=== PATIENT | female | born 1930 | race Caucasian/White ===

== ENCOUNTER 2020-03-16 13:55 | Inpatient (IN) | payer MEDICARE, BC ==
[~2020-03-16] VITALS: Ht 160 cm; Wt 53.8 kg
[2020-03-16] MEDS ORDERED: METHYL SALICYLATE/MENTHOL TOPICAL OINTMENT 57GM TUBE. TP PRN (15:30)
[2020-03-16] MEDS ORDERED: MAG HYDROX/AL HYDROX/SIMETH 30 ML ORAL.SUSP PO PRN (15:30)
[2020-03-16] MEDS ORDERED: MAGNESIUM HYDROXIDE 2,400 MG/30 ML ORAL.SUSP. PO PRN (15:30)
[2020-03-16 16:26] VITALS: BP 137/84
[2020-03-16] MEDS ORDERED: LEVO50TA5 PO (16:26)
[2020-03-16] MEDS ORDERED: SERT50TA PO (16:26)
[2020-03-16] MEDS ORDERED: MEMA10TA PO (16:26)
[2020-03-16] MEDS ORDERED: SERT25TA PO (16:26)
[2020-03-16] MEDS ORDERED: TRAZ-120 PO (16:26)
--- NOTE | 2020-03-16 16:39 | NUR ---
ADMISSION 89 YEAR OLD FEMALE DIRECT ADMIT WITH DEMENTIA AND ALZHEIMER'S IS FROM [facility] ARRIVED ON UNIT AT APPROX 1515 BY EMS. PATIENT IS CALM AND QUIET SITTING IN ROOM 131, ONLY TO BE REORIENTED EVERY SO OFTEN. DR Linda RAMIREZ NOTIFIED OF PATIENTS ARRIVAL. VITAL SIGNS ARE STABLE AND WILL CONTINUE TO MONITOR PATIENT.
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
[2020-03-16 19:26] LABS: BASO % 1 % (0-3); EOS # 0.1 x10^3/uL (0.0-0.7); EOS % 1 % (0-3); HEMATOCRIT 43.3 % (36.0-47.0); HEMOGLOBIN 14.2 g/dL (12.0-15.5); LYMPH # 1.6 x10^3/uL (1.0-4.8); LYMPH % 23 % (24-48); MEAN CORPUSCULAR HEMOGLOBIN 32 pg (25-35); MEAN CORPUSCULAR HGB CONC 33 g/dL (31-37); MEAN CORPUSCULAR VOLUME 98 fL (79-100); MONO # 0.6 x10^3/uL (0.0-1.1); MONO % 9 % (0-9); NEUT # 4.6 x10^3uL (1.8-7.7); NEUT % 66 % (31-73); PLATELET COUNT 200 x10^3/uL (140-400); RED BLOOD COUNT 4.42 x10^6/uL (3.50-5.40); WHITE BLOOD COUNT 6.9 x10^3/uL (4.0-11.0)
[2020-03-16 20:31] LABS: ALBUMIN 4.1 g/dL (3.4-5.0); ALBUMIN/GLOBULIN RATIO 1.2 (1.0-1.7); CALCIUM 9.9 mg/dL (8.5-10.1); GFR 52.3; MAGNESIUM 2.5 mg/dL (1.8-2.4); POTASSIUM 3.5 mmol/L (3.5-5.1); TOTAL BILIRUBIN 1.3 mg/dL (0.2-1.0); TOTAL PROTEIN 7.6 g/dL (6.4-8.2)
[2020-03-16 20:42] VITALS: BP 135/72
[2020-03-16] MEDS: MEMANTINE 10 MG TABLET. PO SCH (21:00)
--- NOTE | 2020-03-16 23:13 | PDOC ---
Exam Note: Brayan Note: Please also refer to the separate dictated note~for this date of service dictated separately. Discussed the patient with Nursing staff reviewed the chart.~Reviewed interim history and current functioning. Reviewed vital signs,~Labs/ Radiology~and current medications noted below. Continue current treatment with the changes noted in the dictated addendum note Assessment: Vital Signs/I&O: Vital Signs Date Time Temp Pulse Resp B/P (MAP) Pulse Ox O2 Delivery O2 Flow Rate FiO2 03/16/20 20:42 97.6 64 20 135/72 (93) 97 Room Air Labs: Laboratory Tests Test 03/16/20 19:11 White Blood Count 6.9 x10^3/uL (4.0-11.0) Red Blood Count 4.42 x10^6/uL (3.50-5.40) Hemoglobin 14.2 g/dL (12.0-15.5) Hematocrit 43.3 % (36.0-47.0) Mean Corpuscular Volume 98 fL (79-100) Mean Corpuscular Hemoglobin 32 pg (25-35) Mean Corpuscular Hemoglobin Concent 33 g/dL (31-37) Red Cell Distribution Width 18.0 % (11.5-14.5) H Platelet Count 200 x10^3/uL (140-400) Neutrophils (%) (Auto) 66 % (31-73) Lymphocytes (%) (Auto) 23 % (24-48) L Monocytes (%) (Auto) 9 % (0-9) Eosinophils (%) (Auto) 1 % (0-3) Basophils (%) (Auto) 1 % (0-3) Neutrophils # (Auto) 4.6 x10^3uL (1.8-7.7) Lymphocytes # (Auto) 1.6 x10^3/uL (1.0-4.8) Monocytes # (Auto) 0.6 x10^3/uL (0.0-1.1) Eosinophils # (Auto) 0.1 x10^3/uL (0.0-0.7) Basophils # (Auto) 0.0 x10^3/uL (0.0-0.2) Sodium Level 143 mmol/L (136-145) Potassium Level 3.5 mmol/L (3.5-5.1) Chloride Level 105 mmol/L (98-107) Carbon Dioxide Level 30 mmol/L (21-32) Anion Gap 8 (6-14) Blood Urea Nitrogen 17 mg/dL (7-20) Creatinine 1.0 mg/dL (0.6-1.0) Estimated GFR (Cockcroft-Gault) 52.3 BUN/Creatinine Ratio 17 (6-20) Glucose Level 80 mg/dL (70-99) Calcium Level 9.9 mg/dL (8.5-10.1) Magnesium Level 2.5 mg/dL (1.8-2.4) H Total Bilirubin 1.3 mg/dL (0.2-1.0) H Aspartate Amino Transferase (AST) 26 U/L (15-37) Alanine Aminotransferase (ALT) 59 U/L (14-59) Alkaline Phosphatase 91 U/L (46-116) Total Protein 7.6 g/dL (6.4-8.2) Albumin 4.1 g/dL (3.4-5.0) Albumin/Globulin Ratio 1.2 (1.0-1.7) Current Medications: I have reviewed the current psychotropics carefully including drug interactions. Risk benefit ratio favors no change other than as noted in my dictated progress note. SALLY MOREJON MD Mar 16, 2020 23:13
--- NOTE | 2020-03-17 03:17 | NUR ---
Nursing Note The patient started the shift very agitated and combative with all cares and interactions. The patient was very agitated during lab draws. The patient refused her one medication. The patient napped after HS cares and when she awoke she was much more pleasant albeit confused. The patient repeatedly attempted to exit bed without assistance. The patient is currently awake watching tv in her room.
[2020-03-17 05:45] VITALS: BP 151/81
[2020-03-17] MEDS: LEVOTHYROXINE 50 MCG TABLET PO SCH (05:46)
[2020-03-17] MEDS: SERTRALINE 50 MG TABLET. PO SCH (08:19)
[2020-03-17] MEDS: SERTRALINE 25 MG TABLET. PO SCH (08:19)
[2020-03-17] MEDS: MEMANTINE 10 MG TABLET. PO SCH ×2 (08:19→19:53)
[2020-03-17] MEDS: traZODone 50 MG TABLET. PO SCH (08:19)
[2020-03-17 11:00] VITALS: BP_SYST 118; BP_SYST 175; BP_DIAS 74; BP_DIAS 91
--- NOTE | 2020-03-17 11:06 | HP ---
ADMIT DATE: 03/17/2020 ATTENDING PHYSICIAN: Dr. Ramirez. REASON FOR CONSULTATION: We are asked to see this patient for medical evaluation and COVID-19 swabbing. HISTORY OF PRESENT ILLNESS: The patient is an 89-year-old female from a memory care unit at [facility]. She is profoundly demented. She is refusing meds at time, thinking other men as her , wanders into other rooms, gets agitated and has been aggressive towards staff. She has been on the Senior Behavioral Unit in the past for adjustment of medication. Unfortunately, she cannot give much history, much of the history is obtained from the old chart. PAST MEDICAL HISTORY: Significant for the dementia, hypothyroidism, hyperlipidemia, and remote history of migraine headaches. ALLERGIES: She has allergies to donepezil, exact reaction is unclear. CURRENT MEDICINES: Include Synthroid 50 mcg daily, Namenda, Zoloft 75 mg daily and trazodone 50 mg at bedtime. SOCIAL HISTORY: She is a nonsmoker and nondrinker. FAMILY HISTORY: Unobtainable. REVIEW OF SYSTEMS: Unfortunately is unobtainable due to the patient's dementia. PHYSICAL EXAMINATION: GENERAL: When I saw her, this is an elderly female who was poorly responsive. INITIAL VITAL SIGNS: Showed a blood pressure of 151/81 mmHg, pulse is 51 and regular, temperature 97.5 degrees Fahrenheit, and oxygen saturation 97% on room air. HEENT: Head is without trauma. Pupils are reactive. Sclerae nonicteric. Oropharynx is clear. NECK: Supple, no bruits identified. LUNGS: Shallow respirations. CARDIOVASCULAR: Showed regular heart tones. No gallops. Peripheral pulses are palpable and full. ABDOMEN: Soft, nontender, no organomegaly. Bowel sounds are hypoactive. EXTREMITIES: Showed no cyanosis or edema. NEUROLOGIC: The patient is profoundly demented, not very cooperative and has no insight into what is going on. SKIN: Otherwise warm and dry. PERTINENT LABORATORY STUDIES: The hemoglobin is maintained at 14.2 grams per deciliter with a white count of 6900. Electrolytes are within normal range. Total bilirubin slightly elevated at 1.3. Transaminases were normal. Coronavirus swab was pending. ASSESSMENT: 1. This 89-year-old female has profound dementia with behavioral issues. 2. Noncompliance and aggressive behavior. 3. Hypertension. 4. Hyperlipidemia. 5. History of migraine headaches. PLAN: 1. Admit to the medical floor. 2. Await COVID-19 coronavirus swab. 3. She will go to the Behavioral Unit when she is negative. 4. Home meds have been continued. At this time, she is a full code. KENRICK RAMIREZ MD DR: DEJUAN/jacqueline JOB#: [id number] / [id number]
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
--- NOTE | 2020-03-17 12:53 | EKG ---
[address] [address] Test Date: 2020-03-17 Test Time: 09:18:35 Pat Name: PB COOK Department: Room: 131 A Gender: F Sprinkler Repair Technician: : [id number] Requested By: KENRICK RAMIREZ Order Number: [id number] Reading MD: Kel Alvarado Measurements Intervals [place] Rate: 74 P: -47 PA: 100 QRS: -27 QRSD: 98 T: 24 QT: 420 QTc: 472 Interpretive Statements SINUS RHYTHM LEFTWARD AXIS LOW LIMB LEAD VOLTAGE T ABNORMALITY IN ANTEROSEPTAL LEADS ABNORMAL ECG RI6.01 No previous ECG available for comparison Electronically Signed On 04-04-2020 17:40:03 STRATEGIC SOURCING MANAGER by Kel Alvarado
[2020-03-17 14:49] LABS: THYROID STIM HORMONE (TSH) 92.27 uIU/mL (0.358-3.740)
[2020-03-17 15:00] VITALS: BP 148/79
--- NOTE | 2020-03-17 17:22 | NUR ---
patient Hamilton spoke with pt over telephone and called nurses station asking why patient was so drowsy. Informed about pt behaviors earlier in the day and being aggressive towards staff, both verbally and physically and the doctor ordered a dose of a medication that caused drowsiness. misunderstood the medication and was upset stating we sedated patient. Informed that when pt was aggressive, we have tried redirection with walking down hallway and attempting to use the bathroom but patient was still agitated after, then medication was tried. Informed pt about the use of the medication and that the patient was drowsy but was arousable when awoken from sleep. Pt is currently eating hamburger in bed independently and has gotten up to [facility] x2 assist. pt is cooperative at this time and informed.
[2020-03-17 18:25] VITALS: BP 106/65
[2020-03-17] MEDS: ACETAMINOPHEN 325 MG TABLET PO PRN (19:53)
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
--- NOTE | 2020-03-17 22:05 | PDOC ---
Exam Note: Brayan Note: Please also refer to the separate dictated note~for this date of service dictated separately.~Patient seen individually. Discussed the patient with Nursing staff reviewed the chart.~Reviewed interim history and current functioning. Reviewed vital signs,~Labs/ Radiology~and current medications noted below. Continue current treatment with the changes noted in the dictated addendum note Assessment: Vital Signs/I&O: Vital Signs Date Time Temp Pulse Resp B/P (MAP) Pulse Ox O2 Delivery O2 Flow Rate FiO2 03/17/20 18:25 97.3 73 20 106/65 (79) 95 Room Air I & O 03/16/20 03/16/20 03/17/20 14:59 22:59 06:59 Intake Total 0 ml 145 ml Balance 0 ml 145 ml Labs: Laboratory Tests Test 03/17/20 05:58 D-Dimer (Yancy) 1.09 mg/L (0.00-0.50) H Current Medications: Meds: Current Medications Medications (Trade) Dose Ordered Sig/Pedro Route PRN Reason Start Time Stop Time Status Last Admin Dose Admin Levothyroxine Sodium (Synthroid) 50 mcg DAILY06 PO 03/17/20 06:00 03/17/20 05:46 Sertraline HCl (Zoloft) 25 mg DAILY PO 03/17/20 09:00 03/17/20 08:19 Sertraline HCl (Zoloft) 50 mg DAILY PO 03/17/20 09:00 03/17/20 08:19 Trazodone HCl (Desyrel) 50 mg DAILY PO 03/17/20 09:00 03/17/20 08:19 Olanzapine (ZyPREXA ZYDIS) 5 mg PRN BID PRN PO ANXIETY / AGITATION 03/17/20 12:00 03/17/20 19:53 I have reviewed the current psychotropics carefully including drug interactions. Risk benefit ratio favors no change other than as noted in my dictated progress note. Diagnosis: Problems: (1) Major neurocognitive disorder (2) Dementia in Alzheimer's disease with delusions (3) Dementia in Alzheimer's disease with depression (4) Dementia of the Alzheimer's type with early onset with behavioral disturbance (5) Dementia, vascular, with delusions (6) Dementia, vascular, with depression (7) Anxiety disorder, unspecified (8) Impulse disorder, unspecified SALLY MOREJON MD Mar 17, 2020:05
[2020-03-17 23:07] LABS: HEMOGLOBIN A1C 5.4 % (4.8-5.6)
[2020-03-18] MEDS: LEVOTHYROXINE 50 MCG TABLET PO SCH (05:58)
[2020-03-18 06:27] VITALS: BP 147/93
[2020-03-18] MEDS: SERTRALINE 25 MG TABLET. PO SCH (12:19)
[2020-03-18] MEDS: traZODone 50 MG TABLET. PO SCH (12:19)
[2020-03-18] MEDS: SERTRALINE 50 MG TABLET. PO SCH (12:19)
[2020-03-18] MEDS: MEMANTINE 10 MG TABLET. PO SCH ×3 (12:19→21:00)
--- NOTE | 2020-03-18 12:32 | PN ---
DATE: 03/18/2020 ATTENDING PHYSICIAN: Dr. Ramirez. SUBJECTIVE: The patient is fast asleep. She is snoring. She had to be given Ativan because she was very agitated yesterday, trying to get out of bed and being belligerent. OBJECTIVE FINDINGS: VITAL SIGNS: Blood pressure today is 147/93 mmHg, temperature 97.5 degrees Fahrenheit, pulse 76 and regular and oxygen saturation 94% on room air. HEENT: Head is without trauma. Pupils are reactive. Sclerae are nonicteric. Oropharynx clear. NECK: Supple. No stridor. LUNGS: Good breath sounds. CARDIOVASCULAR: Showed regular heart tones. ABDOMEN: Soft without any guarding or rebound tenderness. EXTREMITIES: Without edema. NEUROLOGIC: The patient is fast asleep. LABORATORY DATA: Reviewed. Her hemoglobin is 14.2 g, white count 6900. Electrolytes are within normal range. Creatinine is 1.0 mg/dL. Serology shows a nonreactive Treponema pallidum. The coronavirus swab is still pending. ASSESSMENT: This 89-year-old female has; 1. Profound dementia with agitation. 2. Essential hypertension. 3. Hyperlipidemia. 4. Noncompliance of meds and behavioral issues. PLAN: 1. Meds as ordered. 2. Await COVID-19 coronavirus swab. 3. She will go to the Behavioral Unit when the swab is available and negative. KENRICK RAMIREZ MD DR: DEJUAN/jacqueline JOB#: [id number] / [id number]
[2020-03-18] MEDS: ACETAMINOPHEN 325 MG TABLET PO PRN (12:46)
[2020-03-18] MEDS ORDERED: traZODone 50 MG TABLET. PO PRN (17:00)
[2020-03-18 17:39] VITALS: BP 154/86
--- NOTE | 2020-03-18 17:47 | NUR ---
Pt has been very tired today, sleeping for most of the day. When staff was in room to reposition/change brief, she would wake up and have auditory/visual hallucinations, would only acknowledge staff if with physical stimuli. She would not answer staff when asked who she is talking to or what about. She ate lunch and dinner with assist from staff. She was physically aggressive at one point this afternoon when staff was attempting to wipe her eyes as they looked crusty and she was not opening them. She yelled at staff saying 'stop this, stop it now' and swung/flailed arms, spitting at staff. Patient , Hamilton has called nursing station several times today, upwards of ten. At one point this am he was pleasant but every call after he has been verbally aggressive, saying things like, 'why is my so tired today, she can't even talk to me?' 'why are you trying to kill my '. I spoke to Hamilton several times informing him that she has not gotten any further PRN medications today, she had a very rough day yesterday with staff and did not sleep well last night. He was still unaccepting of this and demanded to speak to nursing [employer] supervisor. Nursing [employer] supervisor contacted. Updated Dr Boyce re: pt drowsiness today. New orders placed.
--- NOTE | 2020-03-18 21:00 | NUR ---
Patient is in bed on assumption of care. She is sleeping but arouses to name being called. Refuses to open her eyes or acknowledge this nurse. Reaching up and picking at the air. HS meds held due to drowsiness. Patient appears to be sleeping comfortably at present time. Will continue to monitor.
--- NOTE | 2020-03-18 22:04 | PDOC ---
Exam Note: Brayan Note: Please also refer to the separate dictated note~for this date of service dictated separately.~Patient seen individually. Discussed the patient with Nursing staff reviewed the chart.~Reviewed interim history and current functioning. Reviewed vital signs,~Labs/ Radiology~and current medications noted below. Continue current treatment with the changes noted in the dictated addendum note Assessment: Vital Signs/I&O: Vital Signs Date Time Temp Pulse Resp B/P (MAP) Pulse Ox O2 Delivery O2 Flow Rate FiO2 03/18/20 17:39 97.3 78 15 154/86 (108) 94 Room Air I & O 03/17/20 03/17/20 03/18/20 15:00 23:00 07:00 Intake Total 120 ml 410 ml Balance 120 ml 410 ml Current Medications: Meds: Current Medications Medications (Trade) Dose Ordered Sig/Pedro Route PRN Reason Start Time Stop Time Status Last Admin Dose Admin Olanzapine (ZyPREXA ZYDIS) 2.5 mg PRN TID PRN PO ANXIETY / PSYCHOSIS 03/18/20 17:00 03/18/20 21:26 DC 03/18/20 19:31 I have reviewed the current psychotropics carefully including drug interactions. Risk benefit ratio favors no change other than as noted in my dictated progress note. Diagnosis: Problems: (1) Anxiety disorder, unspecified (2) Dementia, vascular, with depression (3) Dementia, vascular, with delusions (4) Impulse disorder, unspecified (5) Dementia in Alzheimer's disease with depression (6) Dementia in Alzheimer's disease with delusions (7) Dementia of the Alzheimer's type with early onset with behavioral disturbance (8) Major neurocognitive disorder SALLY MOREJON MD Mar 18, 2020 22:04
[2020-03-19 04:50] LABS: BACTERIA,URINE 0 /HPF (0-FEW); BILIRUBIN,URINE NEG (NEG); CLARITY,URINE CLEAR; COLOR,URINE YELLOW; GLUCOSE,URINE NEG (NEG); NITRITE,URINE NEG (NEG); SQUAMOUS EPITHELIAL CELL,UR OCC /LPF; UROBILINOGEN,URINE 0.2 mg/dL (0.2 mg/dL); WBC,URINE RARE /HPF (0-4)
[2020-03-19] MEDS: LEVOTHYROXINE 50 MCG TABLET PO SCH ×2 (05:05→10:47)
[2020-03-19 05:25] VITALS: BP 131/83
--- NOTE | 2020-03-19 05:41 | NUR ---
Patient assisted out of bed and onto bedside commode with an assist of 2. She would not open her eyes and had her feet crossed, but did follow direction and staff was able to get her transferred to the commode successfully. While on the commode, this nurse offered the patient a drink of water. Placed the straw in her mouth, but patient could not figure out how to suck water from the straw. Small sips given. Bed bath was performed while patient was sitting on commode. She was very cooperative. Voiced irritation at how rough the washcloth was, but otherwise no resistance. Patient had soiled her brief with a large amount of urine while in bed, and did not urinate in the hat that was placed in the commode. Patient assisted back to bed with staff assist of 2. Steri-strips that had been placed by patients facility on the skin tear on left forearm were crusty and had a foul odor. Area moistened with normal saline, steri-strips gently removed, area washed and dried, and redressed with a foam dressing. Patient tolerated dressing change well. [facility] from [facility] arrived to assist with obtaining urine specimen via straight cath. Patient very tense, but tolerated procedure well. Patient currently sleeping, will continue to monitor.
[2020-03-19] MEDS: MEMANTINE 10 MG TABLET. PO SCH (10:46)
[2020-03-19] MEDS: SERTRALINE 50 MG TABLET. PO SCH (10:46)
[2020-03-19] MEDS: SERTRALINE 25 MG TABLET. PO SCH (10:46)
[2020-03-19 11:00] VITALS: BP 150/71
--- NOTE | 2020-03-19 11:18 | NUR ---
Report called to Gisell SOW in [facility], questions answered. Pt left unit at 1118 with belongings including clothing and walker and paperwork.
--- NOTE | 2020-03-19 11:28 | DS ---
DATE OF DISCHARGE: 03/19/2020 ATTENDING PHYSICIAN: Dr. Ramirez. FINAL DISCHARGE DIAGNOSES: 1. An 89-year-old female with profound dementia. 2. Associated behavioral issues, noncompliance and aggressive behavior. 3. Essential hypertension. 4. Hyperlipidemia. 5. History of migraine headaches. HISTORY OF PRESENT ILLNESS: This is an 89-year-old female from a local memory [facility] facility sent to admission at the [facility]. She is here for COVID-19 evaluation. PHYSICAL EXAMINATION: Please see the dictated note. PERTINENT LABORATORY AND X-RAY STUDIES: COVID-19 serology was nondetected. Treponema pallidum serology was negative. Hemoglobin maintained at 14.2 g with a white count of 6900. Electrolytes were within normal range; normal sodium, potassium, creatinine 1 mg percent. Transaminases within normal range. COURSE IN THE HOSPITAL: The patient was admitted. She was very noncompliant. She was not aware of person and place. Diet was advanced. She was medically stable. On the third hospital day after a negative COVID-19 coronavirus swab, she was discharged to go to the [facility]. Her discharge meds are unchanged that will continue her scheduled Synthroid 50 mcg daily, Namenda, Zoloft and trazodone dose unchanged. She is a full code per advance directive. She was discharged then from our hospital to the [facility] in stable condition with explicit instructions and followup care. ADDENDUM: The patient's TSH was 92. Clinically, she is euthyroid. Biochemically, she is hypothyroid. She has been on 50 mcg of Synthroid daily, dose has been adjusted and increased to 100 mcg p.o. daily. I suggested a followup TSH in 1 month time. KENRICK RAMIREZ MD DR: DEJUAN/jacqueline JOB#: [id number] / [id number] SALLY Lemus MD
--- NOTE | 2020-03-20 06:58 | PDOC ---
Exam Note: Brayan Note: This note is a late entry for 03/18/2020 covers elements not covered in my initial note. Subjective: The patient was seen face to face in the evening of 03/18/2020 with Sandra SOW. Discussed with nursing staff, reviewed the chart. The patient has been somewhat tired, withdrawn. Her is called 10 or 12 times concerned about that she is not eating enough. Staff is trying to assist her with this. She has been tired, grabbing at things, hallucinating per nursing report. Review of Systems: No CV, , pulmonary, eye, ENT system symptoms on review. Reliability poor. Mental Status Exam: Oriented to herself. Insight and judgment, recent and remote memory, attention and concentration, fund of knowledge is poor consistent with her diagnoses. Laboratory Data: Reviewed. Impression: Major neurocognitive disorder, Alzheimer, vascular with delusion, depression, behavioral disturbance. Anxiety disorder unspecified. Impulse control disorder unspecified. Plan: We will go ahead and change the Zyprexa Zydis 5 mg b.i.d. p.r.n. to 1.25 mg t.i.d. p.r..n psychosis and agitation and reduce the trazodone 50 mg h.s. scheduled down to 25 mg h.s. p.r.n. insomnia to help reduce the sedation. Co ntinue Zoloft at current dosage and Namenda. Adjust further as clinically indicated. Reportedly the patients daughter had called us well and Melodie SOW did share patients progress with the daughter and the fact that we are adjusting the psychotropics and sometimes that can cause somewhat greater sedation initially till the body adapts to it. I did offer to call the but nursing staff indicated he was very hard of hearing and felt it was best for the nursing staff to communicate with the daughter who then could communicate with the patients . We will have social service staff involved on Friday with his communication. Assessment: Vital Signs/I&O: Vital Signs Date Time Temp Pulse Resp B/P (MAP) Pulse Ox O2 Delivery O2 Flow Rate FiO2 03/19/20 11:00 97.9 64 20 150/71 (97) 97 Room Air I & O 03/19/20 03/19/20 03/20/20 15:00 23:00 07:00 Intake Total 0 ml Balance 0 ml Current Medications: I have reviewed the current psychotropics carefully including drug interactions. Risk benefit ratio favors no change other than as noted in my dictated progress note. 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
== END 2020-03-19 11:18 | DRG 57 ==
LOC: LND 15:06
PROVIDERS: ADMIT Hospitalist; ATTEND Hospitalist
DX: G30.9 Alzheimer's disease, unspecified (principal); F01.51 Vascular dementia, unspecified severity, with behavioral disturbance; F02.81 Dementia in other diseases classified elsewhere, unspecified severity, with behavioral disturbance; E03.9 Hypothyroidism, unspecified; E78.5 Hyperlipidemia, unspecified; F32.9 Major depressive disorder, single episode, unspecified; G43.909 Migraine, unspecified, not intractable, without status migrainosus; F41.9 Anxiety disorder, unspecified; F63.9 Impulse disorder, unspecified; I10 Essential (primary) hypertension; Z91.14 Patient's other noncompliance with medication regimen; Z91.19 Patient's noncompliance with other medical treatment and regimen; Z20.828 Contact with and (suspected) exposure to other viral communicable diseases
CPT/HCPCS: 36415; 80053; 80061; 81001; 82306; 82607; 83036; 83540; 83550; 83735; 84436; 84443; 84480; 85025; 85379; 86592; 93005; U0003

== ENCOUNTER 2020-03-19 10:35 | Inpatient (IN) | payer MEDICARE, BC ==
[~2020-03-19] VITALS: Ht 160 cm; Wt 53.2 kg
[~2020-03-19 10:35] MED LIST: LEVO50TA5 PO; MEMA10TA PO; SERT25TA PO; SERT50TA PO; TRAZ-120 PO
[2020-03-19 11:40] VITALS: BP 158/79
[2020-03-19] MEDS ORDERED: METHYL SALICYLATE/MENTHOL TOPICAL OINTMENT 57GM TUBE. TP PRN (12:15)
[2020-03-19] MEDS ORDERED: MAG HYDROX/AL HYDROX/SIMETH 30 ML ORAL.SUSP PO PRN (12:15)
[2020-03-19 17:29] LABS: BASO % 0 % (0-3); EOS # 0.1 x10^3/uL (0.0-0.7); EOS % 1 % (0-3); HEMATOCRIT 46.8 % (36.0-47.0); HEMOGLOBIN 15.4 g/dL (12.0-15.5); LYMPH # 0.7 x10^3/uL (1.0-4.8); LYMPH % 13 % (24-48); MEAN CORPUSCULAR HEMOGLOBIN 32 pg (25-35); MEAN CORPUSCULAR HGB CONC 33 g/dL (31-37); MEAN CORPUSCULAR VOLUME 98 fL (79-100); MONO # 0.5 x10^3/uL (0.0-1.1); MONO % 8 % (0-9); NEUT # 4.6 x10^3uL (1.8-7.7); NEUT % 78 % (31-73); PLATELET COUNT 197 x10^3/uL (140-400); RED CELL DISTRIBUTION WIDTH 17.5 % (11.5-14.5); WHITE BLOOD COUNT 5.9 x10^3/uL (4.0-11.0)
[2020-03-19 17:32] LABS: CALCIUM 9.4 mg/dL (8.5-10.1); CREATININE 1.1 mg/dL (0.6-1.0); GFR 46.9; POTASSIUM 3.5 mmol/L (3.5-5.1)
[2020-03-19 17:38] LABS: ALBUMIN 3.8 g/dL (3.4-5.0); ALBUMIN/GLOBULIN RATIO 1.1 (1.0-1.7); TOTAL BILIRUBIN 1.7 mg/dL (0.2-1.0); TOTAL PROTEIN 7.3 g/dL (6.4-8.2)
[2020-03-19] MEDS: MEMANTINE 10 MG TABLET. PO SCH (20:12)
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
[2020-03-19] MEDS: ACETAMINOPHEN 325 MG TABLET PO PRN (22:52)
[2020-03-20] MEDS: LEVOTHYROXINE 100 MCG TABLET PO SCH ×2 (05:02→12:51)
[2020-03-20 05:50] VITALS: BP 165/83
[2020-03-20] MEDS ORDERED: traZODone 50 MG TABLET. PO SCH (09:00)
[2020-03-20] MEDS: MEMANTINE 10 MG TABLET. PO SCH ×2 (12:51→19:53)
[2020-03-20] MEDS: SERTRALINE 50 MG TABLET. PO SCH (12:52)
[2020-03-20] MEDS: SERTRALINE 25 MG TABLET. PO SCH (12:52)
[2020-03-20 15:42] VITALS: BP 99/60
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
[2020-03-20 19:37] VITALS: BP 101/61
[2020-03-20] MEDS: ZIPRASIDONE 20 MG CAPSULE. PO SCH (19:53)
--- NOTE | 2020-03-20 22:03 | PDOC ---
Exam Note: Brayan Note: Please also refer to the separate dictated note~for this date of service dictated separately.~Patient seen individually. Discussed the patient with Nursing staff reviewed the chart.~Reviewed interim history and current functioning. Reviewed vital signs,~Labs/ Radiology~and current medications noted below. Continue current treatment with the changes noted in the dictated addendum note Assessment: Vital Signs/I&O: Vital Signs Date Time Temp Pulse Resp B/P (MAP) Pulse Ox O2 Delivery O2 Flow Rate FiO2 03/20/20 19:37 60 101/61 (74) 03/20/20 15:42 98.4 18 92 I & O 03/19/20 03/19/20 03/20/20 14:59 22:59 06:59 Intake Total 200 ml Balance 200 ml Current Medications: Meds: Current Medications Medications (Trade) Dose Ordered Sig/Pedro Route PRN Reason Start Time Stop Time Status Last Admin Dose Admin Levothyroxine Sodium (Synthroid) 100 mcg DAILY06 PO 03/20/20 06:00 03/20/20 12:51 Sertraline HCl (Zoloft) 25 mg DAILY PO 03/20/20 09:00 03/20/20 12:52 Sertraline HCl (Zoloft) 50 mg DAILY PO 03/20/20 09:00 03/20/20 12:52 Olanzapine (ZyPREXA ZYDIS) 1.25 mg PRN Q2HR PRN PO PSYCHOSIS 03/19/20 22:45 03/19/20 22:52 Ziprasidone (Geodon) 20 mg HS PO 03/20/20 21:00 03/20/20 19:53 I have reviewed the current psychotropics carefully including drug interactions. Risk benefit ratio favors no change other than as noted in my dictated progress note. Diagnosis: Problems: (1) Anxiety disorder, unspecified (2) Dementia, vascular, with delusions (3) Dementia in Alzheimer's disease with depression (4) Dementia in Alzheimer's disease with delusions (5) Major neurocognitive disorder (6) Dementia, vascular, with depression (7) Impulse disorder, unspecified (8) Dementia of the Alzheimer's type with early onset with behavioral disturbance SALLY MOREJON MD Mar 20, 2020 22:03
[2020-03-21] MEDS: LEVOTHYROXINE 100 MCG TABLET PO SCH (05:02)
[2020-03-21 05:32] VITALS: BP 145/73
[2020-03-21] MEDS: MEMANTINE 10 MG TABLET. PO SCH ×2 (10:48→19:44)
[2020-03-21] MEDS: SERTRALINE 50 MG TABLET. PO SCH (10:48)
[2020-03-21] MEDS: SERTRALINE 25 MG TABLET. PO SCH (10:48)
[2020-03-21 16:06] VITALS: BP 130/77
[2020-03-21] MEDS: ZIPRASIDONE 20 MG CAPSULE. PO SCH (19:44)
[2020-03-21] MEDS: ACETAMINOPHEN 325 MG TABLET PO PRN (20:58)
--- NOTE | 2020-03-21 21:54 | PDOC ---
Exam Note: Brayan Note: Please also refer to the separate dictated note~for this date of service dictated separately.~Patient seen individually. Discussed the patient with Nursing staff reviewed the chart.~Reviewed interim history and current functioning. Reviewed vital signs,~Labs/ Radiology~and current medications noted below. Continue current treatment with the changes noted in the dictated addendum note Assessment: Vital Signs/I&O: Vital Signs Date Time Temp Pulse Resp B/P (MAP) Pulse Ox O2 Delivery O2 Flow Rate FiO2 03/21/20 16:06 98.3 66 18 130/77 (94) 95 I & O 03/20/20 03/20/20 03/21/20 15:00 23:00 07:00 Intake Total 0 ml 100 ml Balance 0 ml 100 ml Current Medications: I have reviewed the current psychotropics carefully including drug interactions. Risk benefit ratio favors no change other than as noted in my dictated progress note. Diagnosis: Problems: (1) Anxiety disorder, unspecified (2) Dementia, vascular, with depression (3) Dementia, vascular, with delusions (4) Impulse disorder, unspecified (5) Dementia in Alzheimer's disease with depression (6) Dementia in Alzheimer's disease with delusions (7) Dementia of the Alzheimer's type with early onset with behavioral disturbance (8) Major neurocognitive disorder SALLY MOREJON MD Mar 21, 2020 21:54
[2020-03-22] MEDS: LEVOTHYROXINE 100 MCG TABLET PO SCH (05:36)
[2020-03-22 05:52] VITALS: BP 120/74
--- NOTE | 2020-03-22 07:03 | PDOC ---
Exam Note: Brayan Note: This note is a late entry for 03/20/2020 covers elements not covered in my initial note. Subjective: The patient was seen face to face in the morning of 03/20/2020 for treatment meeting with Noelle Valdovinos Nicky (social service staff), Louise, Activity Therapy, and Franci SOW. Discussed with nursing staff, reviewed the chart. The patient was also seen face to face in the evening of 03/20/2020. The patient slept 5 hours previous night. Overall the patient has been less sedated today. Appetite is 50%. She is somewhat restless, difficult to redirect at times. She was placed on a mat on the floor for her own safety since she was a fall risk. At the treatment team meeting we reviewed her history at length. She had been moved to the Memory Care Unit about 2 weeks previously due to worsening cognitive deficits. Labs done last night were unremarkable for dehydration. When I saw the patient in the evening per nursing report, she attempted to walk with a walker, remains delusional, confused per Franci SOW. She was restless, believed people were trying to kill her. Review of Systems: No CV, , pulmonary, eye, ENT system symptoms on review. Mental Status Exam: Oriented to herself. Insight and judgment, recent and remote memory, attention and concentration, fund of knowledge is poor consistent with her diagnoses. Laboratory Data: Reviewed. Impression: Major neurocognitive disorder, Alzheimer, vascular with delusion, depression, behavioral disturbance. Anxiety disorder unspecified. Impulse control disorder unspecified. Plan: No change from initial note. The patient remains psychotic. We will start her non-sedating atypical antipsychotic with Geodon 20 mg h.s. Check EKG in 3 days. Adjust further as clinically indicated. Assessment: Vital Signs/I&O: Vital Signs Date Time Temp Pulse Resp B/P (MAP) Pulse Ox O2 Delivery O2 Flow Rate FiO2 03/22/20 05:52 97.9 67 18 120/74 (89) 95 Room Air I & O 03/21/20 03/21/20 03/22/20 15:00 23:00 07:00 Intake Total 240 ml 600 ml Balance 240 ml 600 ml Current Medications: I have reviewed the current psychotropics carefully including drug interactions. Risk benefit ratio favors no change other than as noted in my dictated progress note. Diagnosis: Problems: (1) Anxiety disorder, unspecified (2) Dementia, vascular, with depression (3) Dementia, vascular, with delusions (4) Impulse disorder, unspecified (5) Dementia in Alzheimer's disease with depression (6) Dementia in Alzheimer's disease with delusions (7) Dementia of the Alzheimer's type with early onset with behavioral disturbance (8) Major neurocognitive disorder SALLY MOREJON MD Mar 22, 2020 07:03
[2020-03-22] MEDS: MEMANTINE 10 MG TABLET. PO SCH ×2 (08:55→20:07)
[2020-03-22] MEDS: SERTRALINE 25 MG TABLET. PO SCH (08:55)
[2020-03-22] MEDS: SERTRALINE 50 MG TABLET. PO SCH (08:55)
[2020-03-22 15:43] VITALS: BP 137/77
[2020-03-22] MEDS: ZIPRASIDONE 20 MG CAPSULE. PO SCH (20:06)
--- NOTE | 2020-03-22 21:59 | PDOC ---
Exam Note: Brayan Note: Please also refer to the separate dictated note~for this date of service dictated separately.~Patient seen individually. Discussed the patient with Nursing staff reviewed the chart.~Reviewed interim history and current functioning. Reviewed vital signs,~Labs/ Radiology~and current medications noted below. Continue current treatment with the changes noted in the dictated addendum note Assessment: Vital Signs/I&O: Vital Signs Date Time Temp Pulse Resp B/P (MAP) Pulse Ox O2 Delivery O2 Flow Rate FiO2 03/22/20 15:43 97.9 90 16 137/77 (97) 100 Room Air I & O 03/21/20 03/21/20 03/22/20 14:59 22:59 06:59 Intake Total 240 ml 600 ml Balance 240 ml 600 ml Current Medications: I have reviewed the current psychotropics carefully including drug interactions. Risk benefit ratio favors no change other than as noted in my dictated progress note. Diagnosis: Problems: (1) Anxiety disorder, unspecified (2) Dementia, vascular, with depression (3) Dementia, vascular, with delusions (4) Impulse disorder, unspecified (5) Dementia in Alzheimer's disease with depression (6) Dementia in Alzheimer's disease with delusions (7) Major neurocognitive disorder (8) Dementia of the Alzheimer's type with early onset with behavioral disturbance SALLY MOREJON MD Mar 22, 2020 21:59
[2020-03-23] MEDS: LEVOTHYROXINE 100 MCG TABLET PO SCH (04:59)
[2020-03-23 05:22] VITALS: BP 133/73
--- NOTE | 2020-03-23 07:36 | PDOC ---
Exam Note: Brayan Note: This note is a late entry for 03/21/2020 covers elements not covered in my initial note. Subjective: The patient was seen face to face in the evening of 03/21/2020 with Tanja SOW. Discussed with nursing staff, reviewed the chart. The patient slept 8-1/2 hours previous night. She ate no breakfast. She is compliant with medications, 800% lunch. Review of Systems: No CV, , pulmonary, eye, ENT system symptoms on review. Reliability poor. Mental Status Exam: Oriented to herself. Insight and judgment, recent and remote memory, attention and concentration, fund of knowledge is poor consistent with her diagnoses. Laboratory Data: Reviewed. Impression: Major neurocognitive disorder, Alzheimer, vascular with delusion, depression, behavioral disturbance. Anxiety disorder unspecified. Impulse control disorder unspecified. Plan: No change from initial note. Assessment: Vital Signs/I&O: Vital Signs Date Time Temp Pulse Resp B/P (MAP) Pulse Ox O2 Delivery O2 Flow Rate FiO2 03/23/20 05:22 98.0 57 16 133/73 (93) 94 Room Air I & O 03/22/20 03/22/20 03/23/20 15:00 23:00 07:00 Intake Total 200 ml 200 ml 120 ml Balance 200 ml 200 ml 120 ml Current Medications: I have reviewed the current psychotropics carefully including drug interactions. Risk benefit ratio favors no change other than as noted in my dictated progress note. Diagnosis: Problems: (1) Anxiety disorder, unspecified (2) Dementia, vascular, with depression (3) Dementia, vascular, with delusions (4) Impulse disorder, unspecified (5) Dementia in Alzheimer's disease with depression (6) Dementia in Alzheimer's disease with delusions (7) Dementia of the Alzheimer's type with early onset with behavioral disturbance (8) Major neurocognitive disorder SALLY MOREJON MD Mar 23, 2020 07:36
--- NOTE | 2020-03-23 07:54 | PDOC ---
Exam Note: Brayan Note: This note is a late entry for 03/22/2020 covers elements not covered in my initial note. Subjective: The patient was reviewed on telehealth rounds in the evening of 03/22/2020 with Yolanda SOW. Discussed with nursing staff, reviewed the chart. The patient slept 7-1/2 hours previous night. She has been confused, somewhat more verbal in the evening. Appetite is better. Review of Systems: No CV, , pulmonary, eye system symptoms on review. Mental Status Exam: Oriented to herself. Insight and judgment, recent and remote memory, attention and concentration, fund of knowledge is poor consistent with her diagnoses. Laboratory Data: Reviewed. Impression: Major neurocognitive disorder, Alzheimer, vascular with delusion, depression, behavioral disturbance. Anxiety disorder unspecified. Impulse control disorder unspecified. Plan: No change from initial note. Assessment: Vital Signs/I&O: Vital Signs Date Time Temp Pulse Resp B/P (MAP) Pulse Ox O2 Delivery O2 Flow Rate FiO2 03/23/20 05:22 98.0 57 16 133/73 (93) 94 Room Air I & O 03/22/20 03/22/20 03/23/20 15:00 23:00 07:00 Intake Total 200 ml 200 ml 120 ml Balance 200 ml 200 ml 120 ml Current Medications: I have reviewed the current psychotropics carefully including drug interactions. Risk benefit ratio favors no change other than as noted in my dictated progress note. Diagnosis: Problems: (1) Anxiety disorder, unspecified (2) Dementia, vascular, with depression (3) Dementia, vascular, with delusions (4) Impulse disorder, unspecified (5) Dementia in Alzheimer's disease with depression (6) Dementia in Alzheimer's disease with delusions (7) Dementia of the Alzheimer's type with early onset with behavioral disturbance (8) Major neurocognitive disorder SALLY MOREJON MD Mar 23, 2020 07:54
[2020-03-23] MEDS: MEMANTINE 10 MG TABLET. PO SCH ×2 (08:04→21:22)
[2020-03-23] MEDS: SERTRALINE 50 MG TABLET. PO SCH (08:04)
[2020-03-23] MEDS: SERTRALINE 25 MG TABLET. PO SCH (08:04)
[2020-03-23 15:42] VITALS: BP 145/78
[2020-03-23] MEDS: ZIPRASIDONE 20 MG CAPSULE. PO SCH (21:22)
--- NOTE | 2020-03-23 21:54 | PDOC ---
Exam Note: Brayan Note: Please also refer to the separate dictated note~for this date of service dictated separately.~Patient seen individually. Discussed the patient with Nursing staff reviewed the chart.~Reviewed interim history and current functioning. Reviewed vital signs,~Labs/ Radiology~and current medications noted below. Continue current treatment with the changes noted in the dictated addendum note Assessment: Vital Signs/I&O: Vital Signs Date Time Temp Pulse Resp B/P (MAP) Pulse Ox O2 Delivery O2 Flow Rate FiO2 03/23/20 15:42 98.5 74 16 145/78 (100) 94 Room Air I & O 03/22/20 03/22/20 03/23/20 15:00 23:00 07:00 Intake Total 200 ml 200 ml 120 ml Balance 200 ml 200 ml 120 ml Current Medications: I have reviewed the current psychotropics carefully including drug interactions. Risk benefit ratio favors no change other than as noted in my dictated progress note. Diagnosis: Problems: (1) Anxiety disorder, unspecified (2) Dementia, vascular, with depression (3) Dementia, vascular, with delusions (4) Impulse disorder, unspecified (5) Dementia in Alzheimer's disease with depression (6) Dementia in Alzheimer's disease with delusions (7) Dementia of the Alzheimer's type with early onset with behavioral disturbance (8) Major neurocognitive disorder SALLY MOREJON MD Mar 23, 2020 21:54
[2020-03-24] MEDS: LEVOTHYROXINE 100 MCG TABLET PO SCH (06:06)
[2020-03-24 06:14] VITALS: BP 132/77
[2020-03-24] MEDS: SERTRALINE 25 MG TABLET. PO SCH (08:22)
[2020-03-24] MEDS: SERTRALINE 50 MG TABLET. PO SCH (08:22)
[2020-03-24] MEDS: MEMANTINE 10 MG TABLET. PO SCH ×2 (08:22→19:52)
[2020-03-24 15:35] VITALS: BP 114/78
[2020-03-24] MEDS: CHOLECALCIFEROL (VITAMIN D3) 50,000 UNIT CAPSULE PO SCH (17:07)
[2020-03-24] MEDS: ZIPRASIDONE 20 MG CAPSULE. PO SCH (19:52)
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
--- NOTE | 2020-03-24 22:02 | PDOC ---
Exam Note: Brayan Note: Please also refer to the separate dictated note~for this date of service dictated separately.~Patient seen individually. Discussed the patient with Nursing staff reviewed the chart.~Reviewed interim history and current functioning. Reviewed vital signs,~Labs/ Radiology~and current medications noted below. Continue current treatment with the changes noted in the dictated addendum note Assessment: Vital Signs/I&O: Vital Signs Date Time Temp Pulse Resp B/P (MAP) Pulse Ox O2 Delivery O2 Flow Rate FiO2 03/24/20 15:35 97.3 73 16 114/78 (90) 93 03/23/20 15:42 Room Air I & O 03/23/20 03/23/20 03/24/20 15:00 23:00 07:00 Intake Total 470 ml 240 ml Balance 470 ml 240 ml Current Medications: Meds: Current Medications Medications (Trade) Dose Ordered Sig/Pedro Route PRN Reason Start Time Stop Time Status Last Admin Dose Admin Vitamin D (Vitamin D3) 50,000 unit WEEKLY PO 03/24/20 17:00 03/24/20 17:07 I have reviewed the current psychotropics carefully including drug interactions. Risk benefit ratio favors no change other than as noted in my dictated progress note. 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
[2020-03-25 06:00] VITALS: BP 145/87
[2020-03-25] MEDS: LEVOTHYROXINE 100 MCG TABLET PO SCH (06:10)
--- NOTE | 2020-03-25 07:23 | PDOC ---
Exam Note: Brayan Note: This note is a late entry for 03/23/2020 covers elements not covered in my initial note. Subjective: The patient was seen face to face in the morning of 03/23/2020 with Tanja SOW. Discussed with nursing staff, reviewed the chart. The patient remains confused, somewhat delusional, believes in that other demented patients on the unit is her . She talked about wanting to starve herself and as I addressed this with her she was oblivious that she made that statement and could not remember any reason why she would. She does admit to being depressed at [place]. She did eat some lunch and then had Oreos for snacks. Review of Systems: Ambulation impaired in wheelchair. No CV, , pulmonary, eye system symptoms on review. Mental Status Exam: Oriented to herself. Insight and judgment, recent and remote memory, attention and concentration, fund of knowledge is poor consistent with her diagnoses. Laboratory Data: Reviewed. Impression: Major neurocognitive disorder, Alzheimer, vascular with delusion, depression, behavioral disturbance. Anxiety disorder unspecified. Impulse control disorder unspecified. Plan: No change from initial note. Assessment: Vital Signs/I&O: Vital Signs Date Time Temp Pulse Resp B/P (MAP) Pulse Ox O2 Delivery O2 Flow Rate FiO2 03/25/20 06:00 98.1 65 14 145/87 (106) 96 Room Air I & O 03/24/20 03/24/20 03/25/20 15:00 23:00 07:00 Intake Total 450 ml 120 ml Balance 450 ml 120 ml Current Medications: Meds: Current Medications Medications (Trade) Dose Ordered Sig/Pedro Route PRN Reason Start Time Stop Time Status Last Admin Dose Admin Vitamin D (Vitamin D3) 50,000 unit WEEKLY PO 03/24/20 17:00 03/24/20 17:07 I have reviewed the current psychotropics carefully including drug interactions. Risk benefit ratio favors no change other than as noted in my dictated progress note. 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
--- NOTE | 2020-03-25 07:37 | PDOC ---
Exam Note: Brayan Note: This note is a late entry for 03/24/2020 covers elements not covered in my initial note. Subjective: The patient was seen face to face in the evening of 03/24/2020 with Marni SOW. Discussed with nursing staff, reviewed the chart. The patient slept 6-3/4 hours previous night. The patients appetite is better. She appears somewhat tired, withdrawn, confused. Review of Systems: Ambulation impaired in wheelchair. No CV, , pulmonary, eye, ENT system symptoms on review. Mental Status Exam: Oriented to herself. She is more awake, alert, interactive, but oriented to herself. Insight and judgment, recent and remote memory, attention and concentration, fund of knowledge is poor consistent with her diagnoses. Laboratory Data: Reviewed. Impression: Major neurocognitive disorder, Alzheimer, vascular with delusion, depression, behavioral disturbance. Anxiety disorder unspecified. Impulse control disorder unspecified. Plan: No change from initial note. Assessment: Vital Signs/I&O: Vital Signs Date Time Temp Pulse Resp B/P (MAP) Pulse Ox O2 Delivery O2 Flow Rate FiO2 03/25/20 06:00 98.1 65 14 145/87 (106) 96 Room Air I & O 03/24/20 03/24/20 03/25/20 15:00 23:00 07:00 Intake Total 450 ml 120 ml Balance 450 ml 120 ml Current Medications: Meds: Current Medications Medications (Trade) Dose Ordered Sig/Pedro Route PRN Reason Start Time Stop Time Status Last Admin Dose Admin Vitamin D (Vitamin D3) 50,000 unit WEEKLY PO 03/24/20 17:00 03/24/20 17:07 I have reviewed the current psychotropics carefully including drug interactions. Risk benefit ratio favors no change other than as noted in my dictated progress note. 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
[2020-03-25] MEDS: SERTRALINE 25 MG TABLET. PO SCH (08:34)
[2020-03-25] MEDS: MEMANTINE 10 MG TABLET. PO SCH ×2 (08:34→20:34)
[2020-03-25] MEDS: SERTRALINE 50 MG TABLET. PO SCH (08:34)
[2020-03-25] MEDS: ACETAMINOPHEN 325 MG TABLET PO PRN (08:35)
[2020-03-25 15:38] VITALS: BP 138/72
[2020-03-25] MEDS: ZIPRASIDONE 20 MG CAPSULE. PO SCH (20:34)
--- NOTE | 2020-03-25 21:39 | PDOC ---
Exam Note: Brayan Note: Please also refer to the separate dictated note~for this date of service dictated separately.~Patient seen individually. Discussed the patient with Nursing staff reviewed the chart.~Reviewed interim history and current functioning. Reviewed vital signs,~Labs/ Radiology~and current medications noted below. Continue current treatment with the changes noted in the dictated addendum note Assessment: Vital Signs/I&O: Vital Signs Date Time Temp Pulse Resp B/P (MAP) Pulse Ox O2 Delivery O2 Flow Rate FiO2 03/25/20 15:38 97.8 68 20 138/72 (94) 97 Room Air I & O 03/24/20 03/24/20 03/25/20 15:00 23:00 07:00 Intake Total 450 ml 120 ml Balance 450 ml 120 ml Current Medications: I have reviewed the current psychotropics carefully including drug interactions. Risk benefit ratio favors no change other than as noted in my dictated progress note. 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
[2020-03-26] MEDS: LEVOTHYROXINE 100 MCG TABLET PO SCH (05:44)
[2020-03-26 06:00] VITALS: BP 129/75
[2020-03-26] MEDS: SERTRALINE 50 MG TABLET. PO SCH (08:37)
[2020-03-26] MEDS: SERTRALINE 25 MG TABLET. PO SCH (08:37)
[2020-03-26] MEDS: MEMANTINE 10 MG TABLET. PO SCH ×2 (08:37→19:54)
[2020-03-26 15:47] VITALS: BP 119/61
[2020-03-26] MEDS: ZIPRASIDONE 20 MG CAPSULE. PO SCH (19:54)
--- NOTE | 2020-03-26 22:07 | PDOC ---
Exam Note: Brayan Note: Please also refer to the separate dictated note~for this date of service dictated separately.~Patient seen individually. Discussed the patient with Nursing staff reviewed the chart.~Reviewed interim history and current functioning. Reviewed vital signs,~Labs/ Radiology~and current medications noted below. Continue current treatment with the changes noted in the dictated addendum note Assessment: Vital Signs/I&O: Vital Signs Date Time Temp Pulse Resp B/P (MAP) Pulse Ox O2 Delivery O2 Flow Rate FiO2 03/26/20 15:47 97.1 63 18 119/61 (80) 94 03/26/20 06:00 Room Air I & O 03/25/20 03/25/20 03/26/20 15:00 23:00 07:00 Intake Total 600 ml 360 ml Balance 600 ml 360 ml Current Medications: I have reviewed the current psychotropics carefully including drug interactions. Risk benefit ratio favors no change other than as noted in my dictated progress note. 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
[2020-03-26 22:09] LABS: THYROXINE 5.7 ug/dL (4.5-12.0)
[2020-03-27] MEDS: LEVOTHYROXINE 100 MCG TABLET PO SCH (05:16)
[2020-03-27 06:00] VITALS: BP 130/78
--- NOTE | 2020-03-27 06:38 | PDOC ---
Exam Note: Brayan Note: This note is a late entry for 03/25/2020 covers elements not covered in my initial note. Subjective: The patient was seen face to face in the evening of 03/25/2020 with Ashley SOW. Discussed with nursing staff, reviewed the chart. The patient slept 7-3/4 hours previous night. The patient was lethargic in the morning. In the evening she was more awake, but still very confused, compliant with medications. She ate no breakfast, ate some of her lunch. Review of Systems: Ambulation impaired in wheelchair. No CV, , pulmonary, eye, ENT system symptoms on review. Mental Status Exam: Oriented to herself. Insight and judgment, recent and remote memory, attention and concentration, fund of knowledge is poor consistent with her diagnoses. Laboratory Data: Reviewed. Impression: Major neurocognitive disorder, Alzheimer, vascular with delusion, depression, behavioral disturbance. Anxiety disorder unspecified. Impulse control disorder unspecified. Plan: No change from initial note. Assessment: Vital Signs/I&O: Vital Signs Date Time Temp Pulse Resp B/P (MAP) Pulse Ox O2 Delivery O2 Flow Rate FiO2 03/27/20 06:00 97.7 63 18 130/78 (95) 96 Room Air I & O 03/26/20 03/26/20 03/27/20 14:59 22:59 06:59 Intake Total 180 ml 240 ml Balance 180 ml 240 ml Current Medications: I have reviewed the current psychotropics carefully including drug interactions. Risk benefit ratio favors no change other than as noted in my dictated progress note. 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
[2020-03-27 07:35] LABS: BASO % 1 % (0-3); EOS # 0.2 x10^3/uL (0.0-0.7); EOS % 4 % (0-3); HEMATOCRIT 37.5 % (36.0-47.0); HEMOGLOBIN 12.5 g/dL (12.0-15.5); LYMPH # 0.9 x10^3/uL (1.0-4.8); LYMPH % 19 % (24-48); MEAN CORPUSCULAR HEMOGLOBIN 33 pg (25-35); MEAN CORPUSCULAR HGB CONC 33 g/dL (31-37); MEAN CORPUSCULAR VOLUME 98 fL (79-100); MONO # 0.4 x10^3/uL (0.0-1.1); MONO % 8 % (0-9); NEUT # 3.3 x10^3uL (1.8-7.7); NEUT % 68 % (31-73); PLATELET COUNT 183 x10^3/uL (140-400); RED BLOOD COUNT 3.82 x10^6/uL (3.50-5.40); RED CELL DISTRIBUTION WIDTH 17.5 % (11.5-14.5); WHITE BLOOD COUNT 4.9 x10^3/uL (4.0-11.0)
[2020-03-27 07:39] LABS: ALBUMIN 3.1 g/dL (3.4-5.0); CALCIUM 8.6 mg/dL (8.5-10.1); GFR 52.3; POTASSIUM 3.2 mmol/L (3.5-5.1); TOTAL BILIRUBIN 0.7 mg/dL (0.2-1.0); TOTAL PROTEIN 6.2 g/dL (6.4-8.2)
[2020-03-27] MEDS: SERTRALINE 25 MG TABLET. PO SCH (08:27)
[2020-03-27] MEDS: MEMANTINE 10 MG TABLET. PO SCH ×2 (08:27→19:41)
[2020-03-27] MEDS: SERTRALINE 50 MG TABLET. PO SCH (08:27)
[2020-03-27] MEDS: ACETAMINOPHEN 325 MG TABLET PO PRN (11:30)
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
[2020-03-27 15:58] VITALS: BP 128/73
[2020-03-27] MEDS: ZIPRASIDONE 20 MG CAPSULE. PO SCH (19:41)
[2020-03-27] MEDS: MAGNESIUM HYDROXIDE 2,400 MG/30 ML ORAL.SUSP. PO PRN (19:42)
[2020-03-27] MEDS: POTASSIUM CHLORIDE 20 MEQ TABLET.ER. PO SCH (19:42)
--- NOTE | 2020-03-27 22:03 | PDOC ---
Exam Note: Brayan Note: Please also refer to the separate dictated note~for this date of service dictated separately.~Patient seen individually. Discussed the patient with Nursing staff reviewed the chart.~Reviewed interim history and current functioning. Reviewed vital signs,~Labs/ Radiology~and current medications noted below. Continue current treatment with the changes noted in the dictated addendum note Assessment: Vital Signs/I&O: Vital Signs Date Time Temp Pulse Resp B/P (MAP) Pulse Ox O2 Delivery O2 Flow Rate FiO2 03/27/20 15:58 98.1 91 20 128/73 (91) 97 03/27/20 06:00 Room Air I & O 03/26/20 03/26/20 03/27/20 15:00 23:00 07:00 Intake Total 180 ml 240 ml Balance 180 ml 240 ml Labs: Laboratory Tests Test 03/27/20 06:55 White Blood Count 4.9 x10^3/uL (4.0-11.0) Red Blood Count 3.82 x10^6/uL (3.50-5.40) Hemoglobin 12.5 g/dL (12.0-15.5) Hematocrit 37.5 % (36.0-47.0) Mean Corpuscular Volume 98 fL (79-100) Mean Corpuscular Hemoglobin 33 pg (25-35) Mean Corpuscular Hemoglobin Concent 33 g/dL (31-37) Red Cell Distribution Width 17.5 % (11.5-14.5) H Platelet Count 183 x10^3/uL (140-400) Neutrophils (%) (Auto) 68 % (31-73) Lymphocytes (%) (Auto) 19 % (24-48) L Monocytes (%) (Auto) 8 % (0-9) Eosinophils (%) (Auto) 4 % (0-3) H Basophils (%) (Auto) 1 % (0-3) Neutrophils # (Auto) 3.3 x10^3uL (1.8-7.7) Lymphocytes # (Auto) 0.9 x10^3/uL (1.0-4.8) L Monocytes # (Auto) 0.4 x10^3/uL (0.0-1.1) Eosinophils # (Auto) 0.2 x10^3/uL (0.0-0.7) Basophils # (Auto) 0.0 x10^3/uL (0.0-0.2) Sodium Level 146 mmol/L (136-145) H Potassium Level 3.2 mmol/L (3.5-5.1) L Chloride Level 109 mmol/L (98-107) H Carbon Dioxide Level 28 mmol/L (21-32) Anion Gap 9 (6-14) Blood Urea Nitrogen 24 mg/dL (7-20) H Creatinine 1.0 mg/dL (0.6-1.0) Estimated GFR (Cockcroft-Gault) 52.3 BUN/Creatinine Ratio 24 (6-20) H Glucose Level 86 mg/dL (70-99) Calcium Level 8.6 mg/dL (8.5-10.1) Total Bilirubin 0.7 mg/dL (0.2-1.0) Aspartate Amino Transferase (AST) 17 U/L (15-37) Alanine Aminotransferase (ALT) 27 U/L (14-59) Alkaline Phosphatase 73 U/L (46-116) Total Protein 6.2 g/dL (6.4-8.2) L Albumin 3.1 g/dL (3.4-5.0) L Albumin/Globulin Ratio 1.0 (1.0-1.7) Current Medications: Meds: Current Medications Medications (Trade) Dose Ordered Sig/Pedro Route PRN Reason Start Time Stop Time Status Last Admin Dose Admin Potassium Chloride (Klor-Con) 20 meq BID PO 03/27/20 21:00 03/27/20 19:42 I have reviewed the current psychotropics carefully including drug interactions. Risk benefit ratio favors no change other than as noted in my dictated progress note. 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
[2020-03-28] MEDS: LEVOTHYROXINE 100 MCG TABLET PO SCH (05:03)
[2020-03-28 06:04] VITALS: BP 146/74
--- NOTE | 2020-03-28 06:35 | PDOC ---
Exam Note: Brayan Note: This note is a late entry for 03/26/2020 covers elements not covered in my initial note. Subjective: The patient was seen face to face in the evening of 03/26/2020 with Franci SOW. Discussed with nursing staff, reviewed the chart. The patient slept 7-1/4 hours previous night. Per nursing report the patient is doing better. Appetite is better. She fed herself and talked to her son Beto diaz on the phone. She needs some assistance with nursing staff for toileting however. Review of Systems: Ambulation impaired in wheelchair. No CV, , pulmonary, eye, ENT system symptoms on review. Mental Status Exam: Oriented to herself. As I met with her evening of 03/26 she was pleasant, smiling, but otherwise quite oblivious of her surroundings. Insight and judgment, recent and remote memory, attention and concentration, fund of knowledge is poor consistent with her diagnoses. Laboratory Data: Reviewed. Impression: Major neurocognitive disorder, Alzheimer, vascular with delusion, depression, behavioral disturbance. Anxiety disorder unspecified. Impulse control disorder unspecified. Plan: No change from initial note. Assessment: Vital Signs/I&O: Vital Signs Date Time Temp Pulse Resp B/P (MAP) Pulse Ox O2 Delivery O2 Flow Rate FiO2 03/28/20 06:04 97.4 69 16 146/74 (98) 92 03/27/20 06:00 Room Air I & O 03/27/20 03/27/20 03/28/20 15:00 23:00 07:00 Intake Total 120 ml 480 ml Balance 120 ml 480 ml Labs: Laboratory Tests Test 03/27/20 06:55 White Blood Count 4.9 x10^3/uL (4.0-11.0) Red Blood Count 3.82 x10^6/uL (3.50-5.40) Hemoglobin 12.5 g/dL (12.0-15.5) Hematocrit 37.5 % (36.0-47.0) Mean Corpuscular Volume 98 fL (79-100) Mean Corpuscular Hemoglobin 33 pg (25-35) Mean Corpuscular Hemoglobin Concent 33 g/dL (31-37) Red Cell Distribution Width 17.5 % (11.5-14.5) H Platelet Count 183 x10^3/uL (140-400) Neutrophils (%) (Auto) 68 % (31-73) Lymphocytes (%) (Auto) 19 % (24-48) L Monocytes (%) (Auto) 8 % (0-9) Eosinophils (%) (Auto) 4 % (0-3) H Basophils (%) (Auto) 1 % (0-3) Neutrophils # (Auto) 3.3 x10^3uL (1.8-7.7) Lymphocytes # (Auto) 0.9 x10^3/uL (1.0-4.8) L Monocytes # (Auto) 0.4 x10^3/uL (0.0-1.1) Eosinophils # (Auto) 0.2 x10^3/uL (0.0-0.7) Basophils # (Auto) 0.0 x10^3/uL (0.0-0.2) Sodium Level 146 mmol/L (136-145) H Potassium Level 3.2 mmol/L (3.5-5.1) L Chloride Level 109 mmol/L (98-107) H Carbon Dioxide Level 28 mmol/L (21-32) Anion Gap 9 (6-14) Blood Urea Nitrogen 24 mg/dL (7-20) H Creatinine 1.0 mg/dL (0.6-1.0) Estimated GFR (Cockcroft-Gault) 52.3 BUN/Creatinine Ratio 24 (6-20) H Glucose Level 86 mg/dL (70-99) Calcium Level 8.6 mg/dL (8.5-10.1) Total Bilirubin 0.7 mg/dL (0.2-1.0) Aspartate Amino Transferase (AST) 17 U/L (15-37) Alanine Aminotransferase (ALT) 27 U/L (14-59) Alkaline Phosphatase 73 U/L (46-116) Total Protein 6.2 g/dL (6.4-8.2) L Albumin 3.1 g/dL (3.4-5.0) L Albumin/Globulin Ratio 1.0 (1.0-1.7) Current Medications: Meds: Current Medications Medications (Trade) Dose Ordered Sig/Pedro Route PRN Reason Start Time Stop Time Status Last Admin Dose Admin Potassium Chloride (Klor-Con) 20 meq BID PO 03/27/20 21:00 03/27/20 19:42 I have reviewed the current psychotropics carefully including drug interactions. Risk benefit ratio favors no change other than as noted in my dictated progress note. Diagnosis: Problems: (1) Anxiety disorder, unspecified (2) Dementia, vascular, with depression (3) Dementia, vascular, with delusions (4) Impulse disorder, unspecified (5) Dementia in Alzheimer's disease with depression (6) Dementia in Alzheimer's disease with delusions (7) Dementia of the Alzheimer's type with early onset with behavioral disturbance (8) Major neurocognitive disorder SALLY MOREJON MD Mar 28, 2020 06:35
--- NOTE | 2020-03-28 07:00 | PDOC ---
Exam Note: Brayan Note: This note is a late entry for 03/27/2020 covers elements not covered in my initial note. Subjective: The patient was seen face to face in the morning of 03/27/2020 for a treatment team meeting with Noelle Valdovinos Nikki (director social) and Franci SOW. Discussed with nursing staff, reviewed the chart. The patient slept 7 hours previous night. Nursing report in the evening was with Franci RN. Appetite is 60%. QTc is unremarkable since she is on Geodon 20 mg a day. She has been intermittently hallucinating, fixated on a little boy. Review of Systems: Ambulation impaired in wheelchair. No CV, , pulmonary, eye, ENT system symptoms on review. Mental Status Exam: Oriented to herself. She is very pleasant, interactive, but extremely hard of hearing, smiling at me, oblivious of her surroundings. Insight and judgment, recent and remote memory, attention and concentration, fund of knowledge is poor consistent with her diagnoses. Laboratory Data: Reviewed. Impression: Major neurocognitive disorder, Alzheimer, vascular with delusion, depression, behavioral disturbance. Anxiety disorder unspecified. Impulse control disorder unspecified. Plan: No change from initial note. Assessment: Vital Signs/I&O: Vital Signs Date Time Temp Pulse Resp B/P (MAP) Pulse Ox O2 Delivery O2 Flow Rate FiO2 03/28/20 06:04 97.4 69 16 146/74 (98) 92 03/27/20 06:00 Room Air I & O 03/27/20 03/27/20 03/28/20 15:00 23:00 07:00 Intake Total 120 ml 480 ml Balance 120 ml 480 ml Current Medications: Meds: Current Medications Medications (Trade) Dose Ordered Sig/Pedro Route PRN Reason Start Time Stop Time Status Last Admin Dose Admin Potassium Chloride (Klor-Con) 20 meq BID PO 03/27/20 21:00 03/27/20 19:42 I have reviewed the current psychotropics carefully including drug interactions. Risk benefit ratio favors no change other than as noted in my dictated progress note. 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
[2020-03-28] MEDS: MAGNESIUM HYDROXIDE 2,400 MG/30 ML ORAL.SUSP. PO PRN (08:05)
[2020-03-28] MEDS: SERTRALINE 25 MG TABLET. PO SCH (08:06)
[2020-03-28] MEDS: MEMANTINE 10 MG TABLET. PO SCH ×2 (08:06→19:58)
[2020-03-28] MEDS: POTASSIUM CHLORIDE 20 MEQ TABLET.ER. PO SCH ×2 (08:06→19:58)
[2020-03-28] MEDS: SERTRALINE 50 MG TABLET. PO SCH (08:06)
[2020-03-28 15:55] VITALS: BP 108/72
[2020-03-28] MEDS: ZIPRASIDONE 20 MG CAPSULE. PO SCH (19:58)
--- NOTE | 2020-03-28 21:56 | PDOC ---
Exam Note: Brayan Note: Please also refer to the separate dictated note~for this date of service dictated separately.~Patient seen individually. Discussed the patient with Nursing staff reviewed the chart.~Reviewed interim history and current functioning. Reviewed vital signs,~Labs/ Radiology~and current medications noted below. Continue current treatment with the changes noted in the dictated addendum note Assessment: Vital Signs/I&O: Vital Signs Date Time Temp Pulse Resp B/P (MAP) Pulse Ox O2 Delivery O2 Flow Rate FiO2 03/28/20 15:55 98.4 76 18 108/72 (84) 94 Room Air I & O 03/27/20 03/27/20 03/28/20 15:00 23:00 07:00 Intake Total 120 ml 480 ml Balance 120 ml 480 ml Current Medications: I have reviewed the current psychotropics carefully including drug interactions. Risk benefit ratio favors no change other than as noted in my dictated progress note. Diagnosis: Problems: (1) Anxiety disorder, unspecified (2) Dementia, vascular, with depression (3) Dementia, vascular, with delusions (4) Impulse disorder, unspecified (5) Dementia in Alzheimer's disease with depression (6) Dementia in Alzheimer's disease with delusions (7) Dementia of the Alzheimer's type with early onset with behavioral disturbance (8) Major neurocognitive disorder SALLY MOREJON MD Mar 28, 2020 21:56
[2020-03-29 05:30] VITALS: BP 135/85
[2020-03-29] MEDS: LEVOTHYROXINE 100 MCG TABLET PO SCH (05:41)
[2020-03-29] MEDS: SERTRALINE 25 MG TABLET. PO SCH (08:29)
[2020-03-29] MEDS: SERTRALINE 50 MG TABLET. PO SCH (08:29)
[2020-03-29] MEDS: POTASSIUM CHLORIDE 20 MEQ TABLET.ER. PO SCH ×2 (08:29→19:53)
[2020-03-29] MEDS: MEMANTINE 10 MG TABLET. PO SCH ×2 (08:29→19:52)
[2020-03-29 16:15] VITALS: BP 111/72
[2020-03-29] MEDS: ZIPRASIDONE 20 MG CAPSULE. PO SCH (19:52)
--- NOTE | 2020-03-29 22:06 | PDOC ---
Exam Note: Brayan Note: Please also refer to the separate dictated note~for this date of service dictated separately.~Patient seen individually. Discussed the patient with Nursing staff reviewed the chart.~Reviewed interim history and current functioning. Reviewed vital signs,~Labs/ Radiology~and current medications noted below. Continue current treatment with the changes noted in the dictated addendum note Assessment: Vital Signs/I&O: Vital Signs Date Time Temp Pulse Resp B/P (MAP) Pulse Ox O2 Delivery O2 Flow Rate FiO2 03/29/20 16:15 98.3 69 19 111/72 (85) 93 03/28/20 15:55 Room Air I & O 03/28/20 03/28/20 03/29/20 15:00 23:00 07:00 Intake Total 180 ml 600 ml Balance 180 ml 600 ml Current Medications: I have reviewed the current psychotropics carefully including drug interactions. Risk benefit ratio favors no change other than as noted in my dictated progress note. 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
[2020-03-30] MEDS: LEVOTHYROXINE 100 MCG TABLET PO SCH (05:27)
--- NOTE | 2020-03-30 06:10 | PDOC ---
Exam Note: Brayan Note: This note is a late entry for 03/28/2020 covers elements not covered in my initial note. Subjective: The patient was seen face to face in the evening of 03/28/2020 with Franci SOW. Discussed with nursing staff, reviewed the chart. The patient slept 7 hours previous night. She remains confused, but less agitated. Appetite is better. Review of Systems: Ambulation impaired in wheelchair. No CV, , pulmonary, eye system symptoms on review. She is somewhat hard of hearing. Mental Status Exam: Oriented to herself. She is pleasant, verbal, interactive, quite confused. Insight and judgment, recent and remote memory, attention and concentration, fund of knowledge is poor consistent with her diagnoses. Laboratory Data: Reviewed. Impression: Major neurocognitive disorder, Alzheimer, vascular with delusion, depression, behavioral disturbance. Anxiety disorder unspecified. Impulse control disorder unspecified. Plan: No change from initial note. Assessment: Vital Signs/I&O: Vital Signs Date Time Temp Pulse Resp B/P (MAP) Pulse Ox O2 Delivery O2 Flow Rate FiO2 03/29/20 16:15 98.3 69 19 111/72 (85) 93 03/28/20 15:55 Room Air I & O 03/29/20 03/29/20 03/30/20 15:00 23:00 07:00 Intake Total 520 ml 360 ml Balance 520 ml 360 ml Current Medications: I have reviewed the current psychotropics carefully including drug interactions. Risk benefit ratio favors no change other than as noted in my dictated progress note. 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
[2020-03-30 06:11] VITALS: BP 124/71
--- NOTE | 2020-03-30 06:36 | PDOC ---
Exam Note: Brayan Note: This note is a late entry for 03/29/2020 covers elements not covered in my initial note. Subjective: The patient was seen face to face in the evening of 03/29/2020 with Aldo SOW. Discussed with nursing staff, reviewed the chart. The patient remains confused. Review of Systems: Ambulation impaired in wheelchair. She is hard if hearing. No CV, , pulmonary, eye system symptoms on review. Mental Status Exam: Oriented to herself. The patient was having a greater difficulty with her hearing today and I had to talk loudly into her ear. Insight and judgment, recent and remote memory, attention and concentration, fund of knowledge is poor consistent with her diagnoses. Laboratory Data: Reviewed. Impression: Major neurocognitive disorder, Alzheimer, vascular with delusion, depression, behavioral disturbance. Anxiety disorder unspecified. Impulse control disorder unspecified. Plan: No change from initial note. Assessment: Vital Signs/I&O: Vital Signs Date Time Temp Pulse Resp B/P (MAP) Pulse Ox O2 Delivery O2 Flow Rate FiO2 03/30/20 06:11 97.5 60 16 124/71 (88) 96 03/28/20 15:55 Room Air I & O 03/29/20 03/29/20 03/30/20 15:00 23:00 07:00 Intake Total 520 ml 360 ml Balance 520 ml 360 ml Current Medications: I have reviewed the current psychotropics carefully including drug interactions. Risk benefit ratio favors no change other than as noted in my dictated progress note. Diagnosis: Problems: (1) Anxiety disorder, unspecified (2) Dementia, vascular, with depression (3) Dementia, vascular, with delusions (4) Impulse disorder, unspecified (5) Dementia in Alzheimer's disease with depression (6) Dementia in Alzheimer's disease with delusions (7) Dementia of the Alzheimer's type with early onset with behavioral disturbance (8) Major neurocognitive disorder SALLY MOREJON MD Mar 30, 2020 06:36
[2020-03-30] MEDS: MEMANTINE 10 MG TABLET. PO SCH ×2 (08:12→19:41)
[2020-03-30] MEDS: SERTRALINE 25 MG TABLET. PO SCH (08:12)
[2020-03-30] MEDS: SERTRALINE 50 MG TABLET. PO SCH (08:12)
[2020-03-30] MEDS: POTASSIUM CHLORIDE 20 MEQ TABLET.ER. PO SCH ×2 (08:12→19:41)
[2020-03-30 15:51] VITALS: BP 104/67
[2020-03-30] MEDS: ZIPRASIDONE 20 MG CAPSULE. PO SCH (19:41)
--- NOTE | 2020-03-30 21:52 | PDOC ---
Exam Note: Brayan Note: Please also refer to the separate dictated note~for this date of service dictated separately.~Patient seen individually. Discussed the patient with Nursing staff reviewed the chart.~Reviewed interim history and current functioning. Reviewed vital signs,~Labs/ Radiology~and current medications noted below. Continue current treatment with the changes noted in the dictated addendum note Assessment: Vital Signs/I&O: Vital Signs Date Time Temp Pulse Resp B/P (MAP) Pulse Ox O2 Delivery O2 Flow Rate FiO2 03/30/20 15:51 97.8 76 16 104/67 (79) 92 Room Air I & O 03/29/20 03/29/20 03/30/20 15:00 23:00 07:00 Intake Total 520 ml 360 ml Balance 520 ml 360 ml Current Medications: I have reviewed the current psychotropics carefully including drug interactions. Risk benefit ratio favors no change other than as noted in my dictated progress note. Diagnosis: Problems: (1) Anxiety disorder, unspecified (2) Dementia, vascular, with depression (3) Dementia, vascular, with delusions (4) Impulse disorder, unspecified (5) Dementia in Alzheimer's disease with depression (6) Dementia in Alzheimer's disease with delusions (7) Dementia of the Alzheimer's type with early onset with behavioral disturbance (8) Major neurocognitive disorder SALLY MOREJON MD Mar 30, 2020 21:52
[2020-03-31] MEDS: LEVOTHYROXINE 100 MCG TABLET PO SCH (05:25)
[2020-03-31 06:16] VITALS: BP 126/80
[2020-03-31] MEDS: CHOLECALCIFEROL (VITAMIN D3) 50,000 UNIT CAPSULE PO SCH (09:34)
[2020-03-31] MEDS: POTASSIUM CHLORIDE 20 MEQ TABLET.ER. PO SCH ×2 (09:34→20:38)
[2020-03-31] MEDS: MEMANTINE 10 MG TABLET. PO SCH ×2 (09:34→20:38)
[2020-03-31 15:44] VITALS: BP 114/74
[2020-03-31 15:47] VITALS: BP 114/74
[2020-03-31] MEDS: SERTRALINE 25 MG TABLET. PO SCH (18:00)
[2020-03-31] MEDS: SERTRALINE 50 MG TABLET. PO SCH (18:00)
[2020-03-31] MEDS: MAGNESIUM HYDROXIDE 2,400 MG/30 ML ORAL.SUSP. PO PRN (20:37)
[2020-03-31] MEDS: ZIPRASIDONE 20 MG CAPSULE. PO SCH (20:38)
--- NOTE | 2020-03-31 21:58 | PDOC ---
Exam Note: Brayan Note: Please also refer to the separate dictated note~for this date of service dictated separately.~Patient seen individually. Discussed the patient with Nursing staff reviewed the chart.~Reviewed interim history and current functioning. Reviewed vital signs,~Labs/ Radiology~and current medications noted below. Continue current treatment with the changes noted in the dictated addendum note Assessment: Vital Signs/I&O: Vital Signs Date Time Temp Pulse Resp B/P (MAP) Pulse Ox O2 Delivery O2 Flow Rate FiO2 03/31/20 15:47 97.5 78 16 114/74 (87) 94 Room Air I & O 03/30/20 03/30/20 03/31/20 15:00 23:00 07:00 Intake Total 240 ml 480 ml Balance 240 ml 480 ml Current Medications: Meds: Current Medications Medications (Trade) Dose Ordered Sig/Pedro Route PRN Reason Start Time Stop Time Status Last Admin Dose Admin Sertraline HCl (Zoloft) 50 mg 1800 PO 03/31/20 18:00 03/31/20 18:00 Sertraline HCl (Zoloft) 25 mg 1800 PO 03/31/20 18:00 03/31/20 18:00 I have reviewed the current psychotropics carefully including drug interactions. Risk benefit ratio favors no change other than as noted in my dictated progress note. Diagnosis: Problems: (1) Anxiety disorder, unspecified (2) Dementia, vascular, with depression (3) Dementia, vascular, with delusions (4) Impulse disorder, unspecified (5) Dementia in Alzheimer's disease with depression (6) Dementia in Alzheimer's disease with delusions (7) Dementia of the Alzheimer's type with early onset with behavioral disturbance (8) Major neurocognitive disorder SALLY MOREJON MD Mar 31, 2020 21:58
[2020-04-01] MEDS: POTASSIUM CHLORIDE 20 MEQ TABLET.ER. PO SCH ×2 (05:10→20:05)
[2020-04-01] MEDS: LEVOTHYROXINE 100 MCG TABLET PO SCH (05:11)
[2020-04-01] MEDS: MEMANTINE 10 MG TABLET. PO SCH ×2 (05:11→20:06)
[2020-04-01 06:21] VITALS: BP 154/82
[2020-04-01 15:38] VITALS: BP 101/67
[2020-04-01] MEDS: SERTRALINE 50 MG TABLET. PO SCH (18:37)
[2020-04-01] MEDS: SERTRALINE 25 MG TABLET. PO SCH (18:37)
[2020-04-01] MEDS ORDERED: BISACODYL 10 MG SUPP.RECT PR PRN (19:30)
[2020-04-01] MEDS: ZIPRASIDONE 20 MG CAPSULE. PO SCH (20:05)
--- NOTE | 2020-04-01 21:49 | PDOC ---
Exam Note: Brayan Note: Please also refer to the separate dictated note~for this date of service dictated separately.~Patient seen individually. Discussed the patient with Nursing staff reviewed the chart.~Reviewed interim history and current functioning. Reviewed vital signs,~Labs/ Radiology~and current medications noted below. Continue current treatment with the changes noted in the dictated addendum note Assessment: Vital Signs/I&O: Vital Signs Date Time Temp Pulse Resp B/P (MAP) Pulse Ox O2 Delivery O2 Flow Rate FiO2 04/01/20 15:38 97.4 78 18 101/67 (78) 96 Room Air I & O 03/31/20 03/31/20 04/01/20 15:00 23:00 07:00 Intake Total 525 ml 225 ml Balance 525 ml 225 ml Current Medications: Meds: Current Medications Medications (Trade) Dose Ordered Sig/Pedro Route PRN Reason Start Time Stop Time Status Last Admin Dose Admin Bisacodyl (Dulcolax Supp) 10 mg PRN DAILY PRN [place] CONSTIPATION 04/01/20 19:30 04/01/20 20:06 I have reviewed the current psychotropics carefully including drug interactions. Risk benefit ratio favors no change other than as noted in my dictated progress note. Diagnosis: Problems: (1) Anxiety disorder, unspecified (2) Dementia, vascular, with depression (3) Dementia, vascular, with delusions (4) Impulse disorder, unspecified (5) Dementia in Alzheimer's disease with depression (6) Dementia in Alzheimer's disease with delusions (7) Dementia of the Alzheimer's type with early onset with behavioral disturbance (8) Major neurocognitive disorder SALLY MOREJON MD Apr 01, 2020 21:49
[2020-04-02] MEDS: LEVOTHYROXINE 100 MCG TABLET PO SCH (05:27)
[2020-04-02 05:49] VITALS: BP 122/68
--- NOTE | 2020-04-02 07:09 | PDOC ---
Exam Note: Brayan Note: This note is a late entry for 03/30/2020 covers elements not covered in my initial note. Subjective: The patient was seen face to face in the evening of 03/30/2020 with Aldo SOW. Discussed with nursing staff, reviewed the chart. The patient slept 6-1/4 hours previous night. She was drowsy in the morning, but otherwise awake later in the day. Review of Systems: Ambulation impaired in wheelchair. No CV, , pulmonary, eye system symptoms on review. Mental Status Exam: Oriented to herself. I met with the patient in her room. She was somewhat hard of hearing, oblivious to what I was asking her, but otherwise, pleasant smiling. Insight and judgment, recent and remote memory, attention and concentration, fund of knowledge is poor consistent with her diagnoses. Laboratory Data: Reviewed. Impression: Major neurocognitive disorder, Alzheimer, vascular with delusion, depression, behavioral disturbance. Anxiety disorder unspecified. Impulse control disorder unspecified. Plan: We will change the Zoloft 75 mg in the morning to 75 mg after suppertime, in case if this is causing a.m. sedation. Continue rest unchanged. Assessment: Vital Signs/I&O: Vital Signs Date Time Temp Pulse Resp B/P (MAP) Pulse Ox O2 Delivery O2 Flow Rate FiO2 04/02/20 05:49 97.7 72 18 122/68 (86) 93 04/01/20 15:38 Room Air I & O 04/01/20 04/01/20 04/02/20 15:00 23:00 07:00 Intake Total 240 ml 240 ml Balance 240 ml 240 ml Current Medications: Meds: Current Medications Medications (Trade) Dose Ordered Sig/Pedro Route PRN Reason Start Time Stop Time Status Last Admin Dose Admin Bisacodyl (Dulcolax Supp) 10 mg PRN DAILY PRN [place] CONSTIPATION 04/01/20 19:30 04/01/20 20:06 I have reviewed the current psychotropics carefully including drug interactions. Risk benefit ratio favors no change other than as noted in my dictated progress note. Diagnosis: Problems: (1) Anxiety disorder, unspecified (2) Dementia, vascular, with depression (3) Dementia, vascular, with delusions (4) Impulse disorder, unspecified (5) Dementia in Alzheimer's disease with depression (6) Dementia in Alzheimer's disease with delusions (7) Dementia of the Alzheimer's type with early onset with behavioral disturbance (8) Major neurocognitive disorder SALLY MOREJON MD Apr 02, 2020 07:09
--- NOTE | 2020-04-02 07:32 | PDOC ---
Exam Note: Brayan Note: This note is a late entry for 03/31/2020 covers elements not covered in my initial note. Subjective: The patient was seen face to face in the evening of 03/31/2020 with Aldo SOW. Discussed with nursing staff, reviewed the chart. The patient slept 7-1/2 hours previous night. She has been anxious, restless, wanting to walk. She is a significant fall risk. Review of Systems: Ambulation impaired in wheelchair. No CV, , pulmonary, eye system symptoms on review. Mental Status Exam: Oriented to herself. Insight and judgment, recent and remote memory, attention and concentration, fund of knowledge is poor consistent with her diagnoses. Laboratory Data: Reviewed. Impression: Major neurocognitive disorder, Alzheimer, vascular with delusion, depression, behavioral disturbance. Anxiety disorder unspecified. Impulse control disorder unspecified. Plan: Continue rest unchanged. Assessment: Vital Signs/I&O: Vital Signs Date Time Temp Pulse Resp B/P (MAP) Pulse Ox O2 Delivery O2 Flow Rate FiO2 04/02/20 05:49 97.7 72 18 122/68 (86) 93 04/01/20 15:38 Room Air I & O 04/01/20 04/01/20 04/02/20 15:00 23:00 07:00 Intake Total 240 ml 240 ml Balance 240 ml 240 ml Current Medications: Meds: Current Medications Medications (Trade) Dose Ordered Sig/Pedro Route PRN Reason Start Time Stop Time Status Last Admin Dose Admin Bisacodyl (Dulcolax Supp) 10 mg PRN DAILY PRN [place] CONSTIPATION 04/01/20 19:30 04/01/20 20:06 I have reviewed the current psychotropics carefully including drug interactions. Risk benefit ratio favors no change other than as noted in my dictated progress note. Diagnosis: Problems: (1) Anxiety disorder, unspecified (2) Dementia, vascular, with depression (3) Dementia, vascular, with delusions (4) Impulse disorder, unspecified (5) Dementia in Alzheimer's disease with depression (6) Dementia in Alzheimer's disease with delusions (7) Dementia of the Alzheimer's type with early onset with behavioral disturbance (8) Major neurocognitive disorder SALLY MOREJON MD Apr 02, 2020 07:32
--- NOTE | 2020-04-02 07:52 | PDOC ---
Exam Note: Brayan Note: This note is a late entry for 04/01/2020 covers elements not covered in my initial note. Subjective: The patient was seen face to face in the evening of 04/01/2020 with Chris SOW. Discussed with nursing staff, reviewed the chart. The patient slept 7-1/4 hours previous night. She has been feeding herself. Review of Systems: Ambulation impaired in wheelchair. No CV, , pulmonary, eye system symptoms on review. Mental Status Exam: Oriented to herself. I met with the patient in her room in the evening. She is pleasant smiling. Insight and judgment, recent and remote memory, attention and concentration, fund of knowledge is poor consistent with her diagnoses. Laboratory Data: Reviewed. Impression: Major neurocognitive disorder, Alzheimer, vascular with delusion, depression, behavioral disturbance. Anxiety disorder unspecified. Impulse control disorder unspecified. Plan: No change from initial note. Assessment: Vital Signs/I&O: Vital Signs Date Time Temp Pulse Resp B/P (MAP) Pulse Ox O2 Delivery O2 Flow Rate FiO2 04/02/20 05:49 97.7 72 18 122/68 (86) 93 04/01/20 15:38 Room Air I & O 0 04/01/20 04/01/20 04/02/20 15:00 23:00 07:00 Intake Total 240 ml 240 ml Balance 240 ml 240 ml Current Medications: Meds: Current Medications Medications (Trade) Dose Ordered Sig/Pedro Route PRN Reason Start Time Stop Time Status Last Admin Dose Admin Bisacodyl (Dulcolax Supp) 10 mg PRN DAILY PRN [place] CONSTIPATION 04/01/20 19:30 04/01/20 20:06 I have reviewed the current psychotropics carefully including drug interactions. Risk benefit ratio favors no change other than as noted in my dictated progress note. Diagnosis: Problems: (1) Anxiety disorder, unspecified (2) Dementia, vascular, with depression (3) Dementia, vascular, with delusions (4) Impulse disorder, unspecified (5) Dementia in Alzheimer's disease with depression (6) Dementia in Alzheimer's disease with delusions (7) Dementia of the Alzheimer's type with early onset with behavioral disturbance (8) Major neurocognitive disorder SALLY MOREJON MD Apr 02, 2020 07:52
[2020-04-02] MEDS: MEMANTINE 10 MG TABLET. PO SCH ×2 (09:22→19:43)
[2020-04-02] MEDS: POTASSIUM CHLORIDE 20 MEQ TABLET.ER. PO SCH ×2 (09:22→19:44)
[2020-04-02 15:55] VITALS: BP 113/79
[2020-04-02] MEDS: SERTRALINE 50 MG TABLET. PO SCH (16:21)
[2020-04-02] MEDS: SERTRALINE 25 MG TABLET. PO SCH (16:21)
[2020-04-02] MEDS: ZIPRASIDONE 20 MG CAPSULE. PO SCH (19:44)
--- NOTE | 2020-04-02 20:50 | PDOC ---
Exam Note: Brayan Note: Please also refer to the separate dictated note~for this date of service dictated separately.~Patient seen individually. Discussed the patient with Nursing staff reviewed the chart.~Reviewed interim history and current functioning. Reviewed vital signs,~Labs/ Radiology~and current medications noted below. Continue current treatment with the changes noted in the dictated addendum note Assessment: Vital Signs/I&O: Vital Signs Date Time Temp Pulse Resp B/P (MAP) Pulse Ox O2 Delivery O2 Flow Rate FiO2 04/02/20 15:55 98.0 88 18 113/79 (90) 96 Room Air I & O 04/01/20 04/01/20 04/02/20 15:00 23:00 07:00 Intake Total 240 ml 240 ml Balance 240 ml 240 ml Labs: Laboratory Tests Test 04/02/20 06:55 Thyroid Stimulating Hormone (TSH) 20.900 uIU/mL (0.358-3.740) Current Medications: I have reviewed the current psychotropics carefully including drug interactions. Risk benefit ratio favors no change other than as noted in my dictated progress note. 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
[2020-04-03] MEDS: LEVOTHYROXINE 125 MCG TABLET PO SCH (05:32)
[2020-04-03 06:02] VITALS: BP 121/77
[2020-04-03 07:34] LABS: BASO % 1 % (0-3); EOS # 0.2 x10^3/uL (0.0-0.7); EOS % 4 % (0-3); HEMATOCRIT 40.6 % (36.0-47.0); HEMOGLOBIN 13.3 g/dL (12.0-15.5); LYMPH # 0.9 x10^3/uL (1.0-4.8); LYMPH % 18 % (24-48); MEAN CORPUSCULAR HEMOGLOBIN 33 pg (25-35); MEAN CORPUSCULAR HGB CONC 33 g/dL (31-37); MEAN CORPUSCULAR VOLUME 99 fL (79-100); MONO # 0.6 x10^3/uL (0.0-1.1); MONO % 12 % (0-9); NEUT # 3.3 x10^3uL (1.8-7.7); NEUT % 66 % (31-73); PLATELET COUNT 210 x10^3/uL (140-400); RED BLOOD COUNT 4.09 x10^6/uL (3.50-5.40); RED CELL DISTRIBUTION WIDTH 16.6 % (11.5-14.5); WHITE BLOOD COUNT 5.1 x10^3/uL (4.0-11.0)
[2020-04-03 07:57] LABS: ALBUMIN 3.3 g/dL (3.4-5.0); CALCIUM 9.1 mg/dL (8.5-10.1); CREATININE 0.9 mg/dL (0.6-1.0); GFR 59.1; TOTAL BILIRUBIN 0.9 mg/dL (0.2-1.0); TOTAL PROTEIN 6.6 g/dL (6.4-8.2)
[2020-04-03] MEDS: MEMANTINE 10 MG TABLET. PO SCH ×2 (09:05→20:26)
[2020-04-03] MEDS: POTASSIUM CHLORIDE 20 MEQ TABLET.ER. PO SCH ×2 (09:05→20:26)
--- NOTE | 2020-04-03 14:23 | TX PLAN ---
Interdisciplinary Tx Plan Admission Information Mar 19, 2020 at 10:35 Legal Status (on Admission): Voluntary DPOA/Guardian Name: Hamilton Thompson Contact Other Contact Name: Sierra at [facility] Other Contact Verified Code Status: Full Code Allergies: Coded Allergies: donepezil (Verified Allergy, Unknown, 03/16/20) Diagnoses Primary Diagnosis: Major neurocognitive disorder, Alzheimer, vascular with delusion, depression, behavioral disturbance; anxiety disorder, unspecified; impulse control disorder, unspecified. Reasons for Admission: Aggressive, Anxiety/Panic, Confusion/Disoriented, Poor impulse control Problem in Patient's Words: "At her stage of dementia, she gets a little combative." Additional Admission Comments: Per intake record pt was restless, refusing med, thinking other men were her , wandering, becoming agitated with redirection, and aggressive with staff. Problems Active Problems: wandering, sleeping, confusion Pt Strengths/Limitations Ability for Bunker: Poor Cognitive Functioning/Ability: Poor Communication Skills/Ability: Poor Financial Resources: Good Insight/Judgement: Poor Intellectual Ability: Fair Physical Health: Fair Social Skills: Poor Stability in Family: Excellent Stability in School/Work: Excellent Verbal Skills: Poor Discharge Criteria Discharge Criteria: Adequate arrangements @DC, Improved behavior, Improved mood/thought Preliminary Discharge Plan Preliminary DC Plan: Memory Care Special Precautions Special Precautions: Agitation/Assault, Other Fall Risk: Moderate Initial D/C Plan Pt plan is to return to [facility] Identified Discharge Needs: Medication stabilization Decreased agitation Decreased confusion Currently Utilized Resources Currently Utilized Resources/P: [facility] DPOA is Hamilton Thompson PCP is Dr. Beckett Identified Problems/Hx/Goals Objectives/Short-Term Goals Short Term Goals: Control abnormal behavior, Dec. Aggression, Dec. Hallucination/Delus, Medication Stabilization, Monitor Med Effects Interventions/Frequency Staff Interventions/Frequency&: Psychiatrist to see pt at least three times per week for medication regimen and symptom management. Nursing to assess medication, vitals, monitor bx, and complete 15 minute checks. Activity therapist to encourage group participation or 1:1 if applicable. SW to follow pt care, communicate with family and fackility, and coordinat discharge planning. 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 Education: Pt completed high school and two or three years of college before quitting to get . Community Follow-up Pt to follow-up with PCP following discharge. Community Provider/Family Inpu: Pt to return to [facility] Treatment Plan Explained Patient/Textile Broker had this treatment plan explained to him/her as indicated by the signature below and has been given the opportunity to ask questions and make suggestions: Date: Patient/Textile Broker Signature: Status Update Update Pt sleeps an average of 7 hours per night and eats approximately 50% of her meals. She has been compliant with taking her medication. Pt has been calm and cooperative with nursing staff. She seems to be somewhat drowsy in the mornings, but appears more alert in the afternoons. Pt has attended a few groups since being admitted and is only able to offer limited participation during sessions. She generally offers a smile and an acknowledgement of the subject matter. Pt is scheduled for discharge within the next couple of days. URIEL TRIMBLE Apr 03, 2020 14:23
[2020-04-03 15:57] VITALS: BP 99/68
[2020-04-03] MEDS: SERTRALINE 50 MG TABLET. PO SCH (17:03)
[2020-04-03] MEDS: SERTRALINE 25 MG TABLET. PO SCH (17:03)
[2020-04-03] MEDS: ZIPRASIDONE 20 MG CAPSULE. PO SCH (20:26)
--- NOTE | 2020-04-03 21:11 | PDOC ---
Exam Note: Brayan Note: Please also refer to the separate dictated note~for this date of service dictated separately.~Patient seen individually. Discussed the patient with Nursing staff reviewed the chart.~Reviewed interim history and current functioning. Reviewed vital signs,~Labs/ Radiology~and current medications noted below. Continue current treatment with the changes noted in the dictated addendum note Assessment: Vital Signs/I&O: Vital Signs Date Time Temp Pulse Resp B/P (MAP) Pulse Ox O2 Delivery O2 Flow Rate FiO2 04/03/20 15:57 98.3 71 18 99/68 (78) 96 04/02/20 15:55 Room Air I & O 04/02/20 04/02/20 04/03/20 15:00 23:00 07:00 Intake Total 240 ml 100 ml Balance 240 ml 100 ml Labs: Laboratory Tests Test 04/03/20 06:38 White Blood Count 5.1 x10^3/uL (4.0-11.0) Red Blood Count 4.09 x10^6/uL (3.50-5.40) Hemoglobin 13.3 g/dL (12.0-15.5) Hematocrit 40.6 % (36.0-47.0) Mean Corpuscular Volume 99 fL (79-100) Mean Corpuscular Hemoglobin 33 pg (25-35) Mean Corpuscular Hemoglobin Concent 33 g/dL (31-37) Red Cell Distribution Width 16.6 % (11.5-14.5) H Platelet Count 210 x10^3/uL (140-400) Neutrophils (%) (Auto) 66 % (31-73) Lymphocytes (%) (Auto) 18 % (24-48) L Monocytes (%) (Auto) 12 % (0-9) H Eosinophils (%) (Auto) 4 % (0-3) H Basophils (%) (Auto) 1 % (0-3) Neutrophils # (Auto) 3.3 x10^3uL (1.8-7.7) Lymphocytes # (Auto) 0.9 x10^3/uL (1.0-4.8) L Monocytes # (Auto) 0.6 x10^3/uL (0.0-1.1) Eosinophils # (Auto) 0.2 x10^3/uL (0.0-0.7) Basophils # (Auto) 0.0 x10^3/uL (0.0-0.2) Sodium Level 143 mmol/L (136-145) Potassium Level 4.0 mmol/L (3.5-5.1) Chloride Level 108 mmol/L (98-107) H Carbon Dioxide Level 27 mmol/L (21-32) Anion Gap 8 (6-14) Blood Urea Nitrogen 27 mg/dL (7-20) H Creatinine 0.9 mg/dL (0.6-1.0) Estimated GFR (Cockcroft-Gault) 59.1 BUN/Creatinine Ratio 30 (6-20) H Glucose Level 85 mg/dL (70-99) Calcium Level 9.1 mg/dL (8.5-10.1) Total Bilirubin 0.9 mg/dL (0.2-1.0) Aspartate Amino Transferase (AST) 17 U/L (15-37) Alanine Aminotransferase (ALT) 26 U/L (14-59) Alkaline Phosphatase 80 U/L (46-116) Total Protein 6.6 g/dL (6.4-8.2) Albumin 3.3 g/dL (3.4-5.0) L Albumin/Globulin Ratio 1.0 (1.0-1.7) Current Medications: Meds: Current Medications Medications (Trade) Dose Ordered Sig/Pedro Route PRN Reason Start Time Stop Time Status Last Admin Dose Admin Levothyroxine Sodium (Synthroid) 125 mcg DAILY06 PO 04/03/20 06:00 04/03/20 05:32 I have reviewed the current psychotropics carefully including drug interactions. Risk benefit ratio favors no change other than as noted in my dictated progress note. 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
[2020-04-04] MEDS ORDERED: ACET325T21 PO (00:33)
[2020-04-04] MEDS ORDERED: BISA10SU4 RC (00:33)
[2020-04-04] MEDS ORDERED: CHOL500021 PO (00:35)
[2020-04-04] MEDS ORDERED: MAG30ORA2 PO (00:36)
[2020-04-04] MEDS ORDERED: MAGN24003 PO (00:37)
[2020-04-04] MEDS ORDERED: METH28OI2 TP (00:38)
[2020-04-04] MEDS ORDERED: OLAN2.5T3 PO (00:40)
[2020-04-04] MEDS ORDERED: OLAN5TAB99 PO (00:40)
[2020-04-04] MEDS ORDERED: POTA20TA4 PO (00:42)
[2020-04-04] MEDS ORDERED: ZIPR20CA2 PO (00:43)
[2020-04-04] MEDS: LEVOTHYROXINE 125 MCG TABLET PO SCH (06:02)
[2020-04-04 06:17] VITALS: BP 132/78
--- NOTE | 2020-04-04 07:53 | PDOC ---
Exam Note: Brayan Note: This note is a late entry for 04/02/2020 covers elements not covered in my initial note. Subjective: The patient was reviewed on telehealth rounds in the evening of 04/02/2020 with Shira SOW. Discussed with nursing staff, reviewed the chart. The patient slept 4-3/4 hours previous night. Overall the patient remains confused. Dr. Powell did increase her Synthroid and we will be repeating labs in the morning CBC, CMP. Her appetite is better. Review of Systems: Ambulation impaired in wheelchair. She is hard of hearing. No CV, , pulmonary, eye system symptoms on review. Mental Status Exam: Oriented to herself. I met with the patient in her room in the evening. She is pleasant. Insight and judgment, recent and remote memory, attention and concentration, fund of knowledge is poor consistent with her diagnoses. Laboratory Data: Reviewed. Impression: Major neurocognitive disorder, Alzheimer, vascular with delusion, depression, behavioral disturbance. Anxiety disorder unspecified. Impulse control disorder unspecified. Plan: No change from initial note. Assessment: Vital Signs/I&O: Vital Signs Date Time Temp Pulse Resp B/P (MAP) Pulse Ox O2 Delivery O2 Flow Rate FiO2 04/04/20 06:17 97.5 67 18 132/78 (96) 95 04/02/20 15:55 Room Air l I & O 04/03/20 04/03/20 04/04/20 15:00 23:00 07:00 Intake Total 120 ml 160 ml Balance 120 ml 160 ml Current Medications: I have reviewed the current psychotropics carefully including drug interactions. Risk benefit ratio favors no change other than as noted in my dictated progress note. 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
--- NOTE | 2020-04-04 08:09 | PDOC ---
Exam Note: Brayan Note: This note is a late entry for 04/03/2020 covers elements not covered in my initial note. Subjective: The patient was seen face to face in the morning of 04/03/2020 for treatment team meeting with Noelle Valdovinos, and Greer (social service staff), Louise (activity therapy), and Pilar SOW. Discussed with nursing staff, reviewed the chart. We discussed her progress and discharge plans. She slept 7 hours previous night. Appetite is 50%, somewhat drowsy in the morning. She did attend 2 groups previous week per Louise RN. Review of Systems: Ambulation impaired in wheelchair. No CV, , pulmonary, eye system symptoms on review. Mental Status Exam: Oriented to herself. Insight and judgment, recent and remote memory, attention and concentration, fund of knowledge is poor consistent with her diagnoses. Laboratory Data: Reviewed. Impression: Major neurocognitive disorder, Alzheimer, vascular with delusion, depression, behavioral disturbance. Anxiety disorder unspecified. Impulse control disorder unspecified. Plan: No change from initial note. Assessment: Vital Signs/I&O: Vital Signs Date Time Temp Pulse Resp B/P (MAP) Pulse Ox O2 Delivery O2 Flow Rate FiO2 04/04/20 06:17 97.5 67 18 132/78 (96) 95 04/02/20 15:55 Room Air I & O 04/03/20 04/03/20 04/04/20 14:59 22:59 06:59 Intake Total 120 ml 160 ml Balance 120 ml 160 ml Current Medications: I have reviewed the current psychotropics carefully including drug interactions. Risk benefit ratio favors no change other than as noted in my dictated progress note. 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
[2020-04-04] MEDS: POTASSIUM CHLORIDE 20 MEQ TABLET.ER. PO SCH ×2 (09:00→20:12)
[2020-04-04] MEDS: MEMANTINE 10 MG TABLET. PO SCH ×2 (09:00→20:12)
[2020-04-04 16:00] VITALS: BP 128/65
[2020-04-04] MEDS: SERTRALINE 50 MG TABLET. PO SCH (17:20)
[2020-04-04] MEDS: SERTRALINE 25 MG TABLET. PO SCH (17:20)
[2020-04-04] MEDS: ZIPRASIDONE 20 MG CAPSULE. PO SCH (20:12)
--- NOTE | 2020-04-04 20:38 | PDOC ---
Exam Note: Brayan Note: Please also refer to the separate dictated note~for this date of service dictated separately.~Patient seen individually. Discussed the patient with Nursing staff reviewed the chart.~Reviewed interim history and current functioning. Reviewed vital signs,~Labs/ Radiology~and current medications noted below. Continue current treatment with the changes noted in the dictated addendum note Assessment: Vital Signs/I&O: Vital Signs Date Time Temp Pulse Resp B/P (MAP) Pulse Ox O2 Delivery O2 Flow Rate FiO2 04/04/20 16:00 98.3 72 18 128/65 (86) 93 04/02/20 15:55 Room Air I & O 04/03/20 04/03/20 04/04/20 15:00 23:00 07:00 Intake Total 120 ml 160 ml Balance 120 ml 160 ml Current Medications: I have reviewed the current psychotropics carefully including drug interactions. Risk benefit ratio favors no change other than as noted in my dictated progress note. 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
[2020-04-05 05:34] VITALS: BP 114/74
[2020-04-05] MEDS: LEVOTHYROXINE 125 MCG TABLET PO SCH (06:11)
[2020-04-05] MEDS: POTASSIUM CHLORIDE 20 MEQ TABLET.ER. PO SCH (08:10)
[2020-04-05] MEDS: MEMANTINE 10 MG TABLET. PO SCH (08:11)
--- NOTE | 2020-04-05 21:46 | DS ---
DATE OF DISCHARGE: 04/05/2020 PSYCHIATRIC DISCHARGE NOTE This note covers elements not covered in my initial note of 04/05/2020. REASON FOR ADMISSION: Please refer to the admission history for details. Briefly, the patient is an 89-year-old female referred to us from [facility] by her primary care physician on account of worsening confusion. The patient was refusing medications, thinking other men to be her . She is wandering into other patient's rooms, aggressive towards staff and physically struck out at staff. She is refusing showers refusing help with personal hygiene. She is caught putting lotion on her toothbrush and attempting to drink nail gibraltarian remover at the facility. Behaviors were deemed dangerous, unmanageable. She had failed outpatient psychiatric interventions resulting in this referral. SIGNIFICANT FINDINGS AND CLINICAL COURSE: Following admission, the patient was seen daily individually by myself from a psychiatric standpoint, medical followup per Dr. Conrad/Dr. Powell. The patient remained extremely confused, paranoid, initially had poor appetite, but this gradually improved as her psychotropics were stabilized. Finally, she appeared to be stabilized on a combination of Zoloft 75 mg a day, Namenda 10 mg b.i.d., Zyprexa p.r.n., Geodon 20 mg at bedtime for psychotic symptoms. REVIEW OF SYSTEMS: Prior to discharge, no CV, , pulmonary, eye, ENT system symptoms on review. Reliability poor. Gait unsteady, in wheelchair. MENTAL STATUS EXAM: Oriented to herself. Insight, judgment, recent and remote memory, attention, concentration, fund of knowledge poor, consistent with her diagnoses. FINAL DIAGNOSES: Major neurocognitive disorder, Alzheimer, vascular with delusion, depression, behavioral disturbance; anxiety disorder, unspecified; impulse control disorder, unspecified. Rest unchanged from admission. DISCHARGE MEDICATIONS: Please refer to the MRAD. DISCHARGE INSTRUCTIONS: Outpatient psychiatric and medical followup at the senior living. SALLY MOREJON MD DR: PARMINDER/jacqueline JOB#: [id number] / [id number]
--- NOTE | 2020-04-06 06:45 | PDOC ---
Exam Note: Brayan Note: This note is a late entry for 04/04/2020 covers elements not covered in my initial note. Subjective: The patient was seen face to face in the evening of 04/04/2020 with Pilar SOW. Discussed with nursing staff, reviewed the chart. The patient slept 8-3/4 hours previous night. She has done well during the day, less withdrawn but very confused. At one point briefly she saw a dog in her room and this was a brief visual misperception but she did not react to this. Review of Systems: Ambulation impaired in wheelchair. No CV, , pulmonary, eye system symptoms on review. Mental Status Exam: Oriented to herself. I saw her in her room. Insight and judgment, recent and remote memory, attention and concentration, fund of knowledge is poor consistent with her diagnoses. Laboratory Data: Reviewed. Impression: Major neurocognitive disorder, Alzheimer, vascular with delusion, depression, behavioral disturbance. Anxiety disorder unspecified. Impulse control disorder unspecified. Plan: No change from initial note. Assessment: Vital Signs/I&O: Vital Signs Date Time Temp Pulse Resp B/P (MAP) Pulse Ox O2 Delivery O2 Flow Rate FiO2 04/05/20 05:34 97.2 56 16 114/74 (87) 96 04/02/20 15:55 Room Air I & O 04/05/20 04/05/20 04/06/20 15:00 23:00 07:00 Intake Total 120 ml Balance 120 ml Current Medications: I have reviewed the current psychotropics carefully including drug interactions. Risk benefit ratio favors no change other than as noted in my dictated progress note. 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
== END 2020-04-05 08:40 | DRG 881 ==
LOC: GEROPSY 10:35
PROVIDERS: ADMIT Psychiatry & Neurology Psychiatry; ATTEND Psychiatry & Neurology Psychiatry
DX: F32.9 Major depressive disorder, single episode, unspecified (principal); F01.51 Vascular dementia, unspecified severity, with behavioral disturbance; F02.81 Dementia in other diseases classified elsewhere, unspecified severity, with behavioral disturbance; G30.9 Alzheimer's disease, unspecified; E03.9 Hypothyroidism, unspecified; E78.5 Hyperlipidemia, unspecified; F41.9 Anxiety disorder, unspecified; F63.9 Impulse disorder, unspecified; N18.2 Chronic kidney disease, stage 2 (mild); Z79.899 Other long term (current) drug therapy; G43.909 Migraine, unspecified, not intractable, without status migrainosus; Z20.828 Contact with and (suspected) exposure to other viral communicable diseases
CPT/HCPCS: 36415; 80053; 84436; 84443; 84480; 85025; 93005; U0003; 97110; 97116; 97530; 97535